=== PATIENT | female | born 1970 | race American Indian/Alaskan Native ===

== ENCOUNTER 2020-12-28 04:52 | Emergency (ER) | payer SELFPAY ==
[2020-12-28 05:02] VITALS: BP 174/112
[2020-12-28] MEDS ORDERED: IPRATROPIUM/ALBUTEROL SULFATE 3 ML AMPUL.NEB IH ONE (05:12)
[2020-12-28] MEDS ORDERED: methylPREDNISolone Sod Succinate 125 MG/2 ML INJ IM ONE (05:12)
--- NOTE | 2020-12-28 06:14 | XRay Report ---
CHEST PA AND LATERAL VIEWS INDICATION: COUGH, DYSPNEA. COMPARISON: None. FINDINGS: Support devices: None. Heart: Within normal limits. Lungs/Pleura: No consolidation or effusion. There are mild increased reticular markings. IMPRESSION: 1. Mild increased reticular markings could be due to peribronchial cuffing in the setting of lower ai rways disease. No consolidation. Signer Name: Eran Crowell MD Signed: 12/28/2020 6:10 AM Workstation Name: [id number]
--- NOTE | 2020-12-28 06:33 | Emergency Department Report ---
- General Chief Complaint: Upper Respiratory Infection Stated Complaint: ASTHMA/EARACHE/HEADACHE Source: patient Mode of arrival: Ambulatory Limitations: No Limitations - History of Present Illness Initial Comments: Patient is a 50-year-old -Japanese female with a history of asthma, tobacco abuse and hypertension who presents to the ED with complaint of acute onset persistent nasal and sinus congestion, persistent dry cough with wheezing and chest tightness as well as shortness of breath for the last 1 week, worse in the last 2 days. Patient states that her nebulizer machine broke down a while ago although she has nebulizer at home but was unable to use it. Patient also states that she does not have any albuterol inhaler at home to use as a rescue inhaler. Patient states that no one else at home is had similar symptoms. Patient denies fever, chills, nausea, vomiting, chest pain, dizziness, syncope, abdominal pain, sore throat or headache MD Complaint: cough, rhinorrhea, nasal congestion, sinus pain, other (Shortness of breath no wheezing) -: Sudden, days(s) (3) Severity: severe Severity scale (0 -10): 7 Quality: dull, aching Consistency: intermittent Improves With: nothing Worsens With: nothing Associated Symptoms: denies other symptoms, rhinorrhea, nasal congestion, cough, shortness of breath. denies: fever, chills, myalgias, diaphoresis, headache, sore throat, stiff neck, chest pain, abdominal pain, nausea, vomiting, dysuria, rash, confusion, weight loss, epistaxis, hoarseness, ear pain, other Treatments Prior to Arrival: none - Related Data Previous Rx's Medication Instructions Recorded Last Taken Type Albuterol Sulfate [Proventil Hfa] 1 - 2 puff IH Q6H PRN #1 hfa.aer.ad 12/28/20 Unknown Rx Azithromycin [Zithromax Z-RAMA] 250 mg PO DAILY #6 tablet 12/28/20 Unknown Rx Benzonatate [Tessalon Perles] 100 mg PO Q8HR #30 capsule 12/28/20 Unknown Rx methylPREDNISolone [Medrol 4MG 4 mg PO DAILY #21 tab.ds.pk 12/28/20 Unknown Rx DOSEPAK (21 tabs)] Allergies Allergy/AdvReac Type Severity Reaction Status Date / Time Penicillins Allergy Mild Rash Verified 12/28/20 05:03 ED Review of Systems ROS: Stated complaint: ASTHMA/EARACHE/HEADACHE Other details as noted in HPI Constitutional: denies: chills, fever Eyes: denies: eye pain, eye discharge, vision change ENT: congestion, other (Nasal and sinus congestion). denies: ear pain, throat pain Respiratory: cough, shortness of breath, wheezing Cardiovascular: denies: chest pain, palpitations Endocrine: no symptoms reported Gastrointestinal: denies: abdominal pain, nausea, diarrhea Genitourinary: denies: urgency, dysuria, discharge Musculoskeletal: denies: back pain, joint swelling, arthralgia Skin: denies: rash, lesions Neurological: denies: headache, weakness, paresthesias Psychiatric: denies: anxiety, depression Hematological/Lymphatic: denies: easy bleeding, easy bruising ED Past Medical Hx - Past Medical History Hx Hypertension: Yes (doesnt take meds properly.) Hx Asthma: Yes - Surgical History Past Surgical History?: No - Medications Home Medications: Home Medications Medication Instructions Recorded Confirmed Last Taken Type Albuterol Sulfate [Proventil Hfa] 1 - 2 puff IH Q6H PRN #1 hfa.aer.ad 12/28/20 Unknown Rx Azithromycin [Zithromax Z-RAMA] 250 mg PO DAILY #6 tablet 12/28/20 Unknown Rx Benzonatate [Tessalon Perles] 100 mg PO Q8HR #30 capsule 12/28/20 Unknown Rx methylPREDNISolone [Medrol 4MG 4 mg PO DAILY #21 tab.ds.pk 12/28/20 Unknown Rx DOSEPAK (21 tabs)] ED Physical Exam - General Limitations: No Limitations General appearance: alert, in no apparent distress - Head Head exam: Present: atraumatic, normocephalic, normal inspection - Eye Eye exam: Present: normal appearance, PERRL, EOMI Pupils: Present: normal accommodation - ENT ENT exam: Present: normal orophraynx, mucous membranes moist, TM's normal bilaterally, normal external ear exam, other (Grossly congested nasal passages; palpable frontal and maxillary sinus tenderness) - Neck Neck exam: Present: normal inspection, full ROM - Respiratory Respiratory exam: Present: wheezes (Mildly diffuse coarse wheezes throughout). Absent: respiratory distress, rales, rhonchi, chest wall tenderness, accessory muscle use, decreased breath sounds, prolonged expiratory - Cardiovascular Cardiovascular Exam: Present: regular rate, normal rhythm, normal heart sounds. Absent: bradycardia, irregular rhythm, systolic murmur, diastolic murmur, rubs, gallop - GI/Abdominal GI/Abdominal exam: Present: soft, normal bowel sounds. Absent: tenderness, guarding, rebound, hyperactive bowel sounds, hypoactive bowel sounds, organomegaly, mass - Extremities Exam Extremities exam: Present: normal inspection, full ROM, normal capillary refill - Back Exam Back exam: Present: normal inspection, full ROM. Absent: tenderness, CVA tenderness (R), CVA tenderness (L), muscle spasm, paraspinal tenderness - Neurological Exam Neurological exam: Present: alert, oriented X3, CN II-XII intact, normal gait, reflexes normal - Psychiatric Psychiatric exam: Present: normal affect, normal mood - Skin Skin exam: Present: warm, dry, intact, normal color. Absent: rash ED Course Vital Signs 12/28/20 04:58 Temperature 98.0 F Pulse Rate 97 H Respiratory 20 Rate Blood Pressure 174/112 [Left] O2 Sat by Pulse 96 Oximetry ED Medical Decision Making - Radiology Data Radiology results: report reviewed, image reviewed [address] [address] XRay Report Signed Patient: LUIS MENDOZA MR#: [id number] : 1970 Acct:[id number] Age/Sex: 50 / F ADM Date: 12/28/20 Loc: ED Attending Dr: Ordering Physician: INGRIS SIMMS Date of Service: 12/28/20 Procedure(s): XR chest routine 2V Accession Number(s): [id number] cc: INGRIS SIMMS Fluoro Time In Minutes: CHEST PA AND LATERAL VIEWS INDICATION: COUGH, DYSPNEA. COMPARISON: None. FINDINGS: Support devices: None. Heart: Within normal limits. Lungs/Pleura: No consolidation or effusion. There are mild increased reticular markings. IMPRESSION: 1. Mild increased reticular markings could be due to peribronchial cuffing in the setting of lower airways disease. No consolidation. Signer Name: Eran Crowell MD Signed: 12/28/2020 6:10 AM Workstation Name: [id number] Transcribed By: Dictated By: Eran Crowell MD Electronically Authenticated By: Eran Crowell MD Signed Date/Time: 12/28/20609 DD/ 8 TD/TT: - Medical Decision Making This is a 50-year-old -Japanese female with a history of asthma, tobacco abuse and hypertension who presents to the ED with complaint of acute onset persistent nasal and sinus congestion, persistent dry cough with wheezing and chest tightness as well as shortness of breath for the last 1 week, worse in the last 2 days. Patient states that her nebulizer machine broke down a while ago although she has nebulizer at home but was unable to use it. Patient also states that she does not have any albuterol inhaler at home to use as a rescue inhaler. Patient states that no one else at home is had similar symptoms. In the ED, patient is alert and oriented x3 and is not in any distress. Patient was treated in the ED with DuoNeb and Solu-Medrol injection. Chest x-ray showed no acute cardiopulmonary abnormalities or pneumonitis but mild increased reticular markings could be due to peribronchial cuffing in the setting of lower airways disease. No consolidation. On reevaluation, patient wheezing improved significantly, patient oxygen saturation was 96% in room air. Patient was discharged home on medications and advised to follow-up with her primary care physician in 7 to 10 days for reevaluation. Patient was advised to consider quitting tobacco abuse to improve on her symptoms. Patient was advised return to the ED immediately if symptoms get worse. - Differential Diagnosis Asthma; URI; bronchitis; sinusitis; pneumonia; COVID-19 Critical care attestation.: If time is entered above; I have spent that time in minutes in the direct care of this critically ill patient, excluding procedure time. ED Disposition Clinical Impression: Acute bronchitis with asthma with acute exacerbation, Acute upper respiratory infection Disposition: HOME / SELF CARE / HOMELESS Is pt being admited?: No Does the pt Need Aspirin: No Condition: Stable Instructions: Upper Respiratory Infection, Adult, [id number], Cough, Adult, [id number], Acute Bronchitis, Adult, [id number], Asthma, Adult, [id number] Additional Instructions: Chest x-ray showed no acute cardiopulmonary abnormalities or pneumonitis. Take medication with food, drink plenty of fluids and follow-up with your primary care physician in 7 to 10 days for reevaluation. Return to the ED immediately if symptoms get worse. Prescriptions: methylPREDNISolone [Medrol 4MG DOSEPAK (21 tabs)] 4 mg PO DAILY #21 tab.ds.pk Albuterol Sulfate [Proventil Hfa] 1 - 2 puff IH Q6H PRN #1 hfa.aer.ad PRN Reason: Shortness Of Breath Benzonatate [Tessalon Perles] 100 mg PO Q8HR #30 capsule Azithromycin [Zithromax Z-RAMA] 250 mg PO DAILY #6 tablet Referrals: [facility] [Provider Group] - 7-10 days Forms: Work/School Release Form(ED) Time of Disposition: 06:35 Print Language: LITHUANIAN
== END 2020-12-28 06:56 | disposition home or self-care (01) ==
LOC: ED 04:52
DX: F20.9 Schizophrenia, unspecified (principal); J45.901 Unspecified asthma with (acute) exacerbation; I10 Essential (primary) hypertension
CPT/HCPCS: 71046; 96372; 99283; J2930

== ENCOUNTER 2021-01-04 16:47 | Emergency (ER) | payer SELFPAY ==
[2021-01-04 18:55] VITALS: BP 176/129
[2021-01-04] MEDS ORDERED: CYCLOBENZAPRINE 10 MG TAB PO ONE (19:14)
[2021-01-04] MEDS ORDERED: KETOROLAC 30 MG/1 ML INJ IM ONE (19:14)
[2021-01-04] MEDS ORDERED: dexAMETHasone 20 MG/5 ML VIAL IM ONE (19:14)
--- NOTE | 2021-01-04 19:19 | Emergency Department Report ---
ED Back Pain/Injury HPI - General Chief Complaint: Back Pain/Injury Stated Complaint: BACK PAIN/LEG Time Seen by Provider: 01/04/21 19:14 Source: patient Limitations: No Limitations - History of Present Illness Initial Comments: Patient 50-year-old -[place] female with history of asthma and kidney stones who presents for low back pain radiating to left lower extremity x2 days.n patient states she woke up with burning stinging pain radiating to the left leg. Pain is rated at 5/10 exacerbated by movement palpation. Pain is relieved by rest and offloading. Patient denies fall injury or trauma. Patient denies dysuria, frequency or urgency. There is no hematuria. No fevers, no chills no nausea or vomiting. MD Complaint: back injury - Related Data Previous Rx's Medication Instructions Recorded Last Taken Type Albuterol Sulfate [Proventil Hfa] 1 - 2 puff IH Q6H PRN #1 hfa.aer.ad 12/28/20 Unknown Rx Azithromycin [Zithromax Z-RAMA] 250 mg PO DAILY #6 tablet 12/28/20 Unknown Rx Benzonatate [Tessalon Perles] 100 mg PO Q8HR #30 capsule 12/28/20 Unknown Rx methylPREDNISolone [Medrol 4MG 4 mg PO DAILY #21 tab.ds.pk 12/28/20 Unknown Rx DOSEPAK (21 tabs)] Cyclobenzaprine [Flexeril] 10 mg PO BID PRN #20 tablet 01/04/21 Unknown Rx Menthol/Camphor [[place] 1 applicatio TP Q6H PRN #1 tube 01/04/21 Unknown Rx Ointment] Naproxen 500 mg PO BID PRN #30 tablet 01/04/21 Unknown Rx Allergies Allergy/AdvReac Type Severity Reaction Status Date / Time Penicillins Allergy Mild Rash Verified 12/28/20 05:03 ED Review of Systems ROS: Stated complaint: BACK PAIN/LEG Other details as noted in HPI Constitutional: denies: chills, fever Eyes: denies: eye pain, eye discharge, vision change ENT: denies: ear pain, throat pain Respiratory: denies: cough, shortness of breath, wheezing Cardiovascular: denies: chest pain, palpitations Endocrine: no symptoms reported Gastrointestinal: as per HPI. denies: nausea, vomiting Genitourinary: denies: urgency, dysuria, frequency, hematuria, discharge Musculoskeletal: back pain, arthralgia, myalgia Skin: as per HPI Neurological: denies: headache, weakness, numbness, paresthesias, confusion, vertigo Psychiatric: denies: anxiety, depression Hematological/Lymphatic: denies: easy bleeding, easy bruising ED Past Medical Hx - Past Medical History Hx Hypertension: Yes (doesnt take meds properly.) Hx Asthma: Yes - Medications Home Medications: Home Medications Medication Instructions Recorded Confirmed Last Taken Type Albuterol Sulfate [Proventil Hfa] 1 - 2 puff IH Q6H PRN #1 hfa.aer.ad 12/28/20 Unknown Rx Azithromycin [Zithromax Z-RAMA] 250 mg PO DAILY #6 tablet 12/28/20 Unknown Rx Benzonatate [Tessalon Perles] 100 mg PO Q8HR #30 capsule 12/28/20 Unknown Rx methylPREDNISolone [Medrol 4MG 4 mg PO DAILY #21 tab.ds.pk 12/28/20 Unknown Rx DOSEPAK (21 tabs)] Cyclobenzaprine [Flexeril] 10 mg PO BID PRN #20 tablet 01/04/21 Unknown Rx Menthol/Camphor [[place] 1 applicatio TP Q6H PRN #1 tube 01/04/21 Unknown Rx Ointment] Naproxen 500 mg PO BID PRN #30 tablet 01/04/21 Unknown Rx ED Physical Exam - General Limitations: No Limitations General appearance: alert, in no apparent distress - Head Head exam: Present: atraumatic, normocephalic - Eye Eye exam: Present: EOMI Pupils: Present: normal accommodation - ENT ENT exam: Present: mucous membranes moist - Neck Neck exam: Present: normal inspection, full ROM. Absent: tenderness - Respiratory Respiratory exam: Present: normal lung sounds bilaterally. Absent: respiratory distress, wheezes, stridor, chest wall tenderness - Cardiovascular Cardiovascular Exam: Present: regular rate, normal rhythm, normal heart sounds. Absent: systolic murmur, diastolic murmur, rubs, gallop - GI/Abdominal GI/Abdominal exam: Present: soft, normal bowel sounds. Absent: distended, tenderness, guarding, rebound, rigid, bruit, hernia - Rectal Rectal exam: Present: deferred - Extremities Exam Extremities exam: Present: full ROM, normal capillary refill. Absent: tenderness - Back Exam Back exam: Present: full ROM, CVA tenderness (L), muscle spasm, paraspinal tenderness. Absent: CVA tenderness (R), vertebral tenderness - Expanded Back Exam Expanded Back exam: Absent: saddle anesthesia Back exam: Negative Straight Leg Raising: Left - Neurological Exam Neurological exam: Present: alert, oriented X3, CN II-XII intact, normal gait, reflexes normal. Absent: motor sensory deficit - Expanded Neurological Exam Expanded Patient oriented to: Present: person, place, time Speech: Present: fluid speech Motor strength exam: RLE: 5, LLE: 5 DTR: ankle (R): 1+, ankle (L): 1+ Best Eye Response ([place]): (4) open spontaneously Best Motor Response ([place]): (6) obeys commands Best Verbal Response ([place]): (5) oriented [place] Total: 15 - Psychiatric Psychiatric exam: Present: normal affect, normal mood - Skin Skin exam: Present: warm, dry, intact, normal color. Absent: rash ED Course Vital Signs 01/04/21 18:49 Temperature 97.6 F Pulse Rate 109 H Respiratory 20 Rate Blood Pressure 176/129 O2 Sat by Pulse 97 Oximetry ED Medical Decision Making - Lab Data Labs 01/04/21 22:14 Urine Color Yellow Urine Turbidity Clear Urine pH 5.0 Ur Specific [place] 1.025 Urine Protein <15 mg/dl Urine Glucose (UA) Neg Urine Ketones Tr Urine Blood Neg Urine Nitrite Neg Urine Bilirubin Neg Urine Urobilinogen 2.0 Ur Leukocyte Esterase Neg Urine WBC (Auto) 1.0 Urine RBC (Auto) 3.0 U Epithel Cells (Auto) 5.0 Urine Mucus Few - Medical Decision Making Pain is improved medications given in ED. UA is normal no nitrates no leukocytes no bacteria. Plan DC to home, with prescriptions. Take medications as prescribed, moist heat therapy, back exercises, follow-up primary care doctor in 2 to 3 days. Return to emergency should symptoms worsen. Critical care attestation.: If time is entered above; I have spent that time in minutes in the direct care of this critically ill patient, excluding procedure time. ED Disposition Clinical Impression: Low back strain Qualifiers: Encounter type: initial encounter Qualified Code(s): S39.012A - Strain of muscle, fascia and tendon of lower back, initial encounter Disposition: 01 HOME / SELF CARE / HOMELESS Is pt being admited?: No Does the pt Need Aspirin: No Condition: Stable Instructions: Low Back Sprain or Strain Rehab-SportsMed Additional Instructions: Take medications as prescribed, moist heat therapy, back exercises. Follow-up with your doctor in 2 to 3 days. Return to emergency should symptoms worsen. Prescriptions: Cyclobenzaprine [Flexeril] 10 mg PO BID PRN #20 tablet PRN Reason: Muscle Spasm Naproxen 500 mg PO BID PRN #30 tablet PRN Reason: pain Menthol/Camphor [[place] Ointment] 1 applicatio TP Q6H PRN #1 tube PRN Reason: Pain Referrals: TONY MONZON MD [Staff Physician] - 3-5 Days Forms: Work/School Release Form(ED) Time of Disposition: 22:48
[2021-01-04 22:29] LABS: Bilirubin,Urine NEG (Negative); Blood,Urine NEG (Negative); Color,Urine Yellow (Yellow); Mucus,Urine FEW /HPF; Protein,Urine <15 mg/dL mg/dL (Negative)
== END 2021-01-04 23:11 | disposition home or self-care (01) ==
LOC: ED 16:47
DX: S39.012A Strain of muscle, fascia and tendon of lower back, initial encounter (principal); X58.XXXA Exposure to other specified factors, initial encounter; Y93.89 Activity, other specified; Y92.89 Other specified places as the place of occurrence of the external cause; Y99.8 Other external cause status
CPT/HCPCS: 81001; 96372; 99283; J1100; J1885

== ENCOUNTER 2021-01-25 04:15 | Inpatient (IN) | payer SELFPAY ==
[2021-01-25] MEDS ORDERED: IPRATROPIUM 0.02% NEBU 2.5 ML IH ONE (04:26)
[2021-01-25] MEDS ORDERED: ALBUTEROL 2.5 MG/3 ML NEBU IH ONE (04:26)
[2021-01-25] MEDS ORDERED: MAGNESIUM SULFATE 2 GM/50 ML BAG IV ONE (04:26)
[2021-01-25] MEDS ORDERED: methylPREDNISolone Sod Succinate 125 MG/2 ML INJ IV ONE (04:26)
--- NOTE | 2021-01-25 05:03 | Emergency Department Report ---
<TRACIE MARTINEZ - Last Filed: 01/25/21 06:14> ED Asthma HPI - General Chief Complaint: Adult Asthma Stated Complaint: asthma attack Time Seen by Provider: 01/25/21 04:27 Source: patient Mode of arrival: Ambulatory Limitations: No Limitations - History of Present Illness Initial Comments: 50-year-old female with a past medical history of asthma hypertension (noncompliant with meds) presents to the hospital complaining of wheezing shortness of breath for the last 2 days. She ran out of her inhaler and her nebulizer is broken. She complains of a cough occasionally productive of sputum. She feels hot and cold without documented fever. She denies calf tenderness or leg edema. She denies previous history of intubations. PMD: None - Related Data Previous Rx's Medication Instructions Recorded Last Taken Type Albuterol Sulfate [Proventil Hfa] 1 - 2 puff IH Q6H PRN #1 hfa.aer.ad 12/28/20 Unknown Rx Azithromycin [Zithromax Z-RAMA] 250 mg PO DAILY #6 tablet 12/28/20 Unknown Rx Benzonatate [Tessalon Perles] 100 mg PO Q8HR #30 capsule 12/28/20 Unknown Rx methylPREDNISolone [Medrol 4MG 4 mg PO DAILY #21 tab.ds.pk 12/28/20 Unknown Rx DOSEPAK (21 tabs)] Cyclobenzaprine [Flexeril] 10 mg PO BID PRN #20 tablet 01/04/21 Unknown Rx Menthol/Camphor [[place] 1 applicatio TP Q6H PRN #1 tube 01/04/21 Unknown Rx Ointment] Naproxen 500 mg PO BID PRN #30 tablet 01/04/21 Unknown Rx Allergies Allergy/AdvReac Type Severity Reaction Status Date / Time Penicillins Allergy Mild Rash Verified 12/28/20 05:03 ED Review of Systems Comment: All other systems reviewed and negative ED Past Medical Hx - Past Medical History Hx Hypertension: Yes (doesnt take meds properly.) Hx Asthma: Yes - Medications Home Medications: Home Medications Medication Instructions Recorded Confirmed Last Taken Type Albuterol Sulfate [Proventil Hfa] 1 - 2 puff IH Q6H PRN #1 hfa.aer.ad 12/28/20 Unknown Rx Azithromycin [Zithromax Z-RAMA] 250 mg PO DAILY #6 tablet 12/28/20 Unknown Rx Benzonatate [Tessalon Perles] 100 mg PO Q8HR #30 capsule 12/28/20 Unknown Rx methylPREDNISolone [Medrol 4MG 4 mg PO DAILY #21 tab.ds.pk 12/28/20 Unknown Rx DOSEPAK (21 tabs)] Cyclobenzaprine [Flexeril] 10 mg PO BID PRN #20 tablet 01/04/21 Unknown Rx Menthol/Camphor [[place] 1 applicatio TP Q6H PRN #1 tube 01/04/21 Unknown Rx Ointment] Naproxen 500 mg PO BID PRN #30 tablet 01/04/21 Unknown Rx ED Physical Exam - General Limitations: No Limitations - Other Other exam information: General: No acute distress Head: Atraumatic Eyes: normal appearance ENT: Moist mucous membranes Neck: Normal appearance, no midline tenderness Chest: Wheezing, tachypnea, difficulty speaking CV: Regular rate and rhythm Abdomen: Soft, normal bowel sounds, nontender, nondistended, no rebound or guarding Back: Normal inspection Extremity: Normal inspection, full range of motion, no calf tenderness or leg edema Neuro: Alert O x 3, no facial asymmetry, speech clear, no gross motor sensory deficit Psych: Appropriate behavior Skin: No rash ED Medical Decision Making - Lab Data Result diagrams: 01/25/21 05:07 01/25/21 05:07 - Radiology Data Radiology results: report reviewed (Chest x-ray: No acute finding) - Medical Decision Making Patient will require 1 hour continuous neb secondary to significant wheezing and shortness of breath. Critical Care Time: Yes Critical care time in (mins) excluding proc time.: 35 ED Disposition Clinical Impression: Chronic hypertension, Acute bronchospasm Acute asthma exacerbation Qualifiers: Asthma severity: unspecified severity Asthma persistence: unspecified Qualified Code(s): J45.901 - Unspecified asthma with (acute) exacerbation Disposition: ADMITTED INPATIENT Condition: Fair Instructions: Hypertension (ED) <ELLIS ALEX - Last Filed: 01/25/21 07:57> ED Review of Systems ROS: Stated complaint: asthma attack Other details as noted in HPI ED Course Vital Signs 01/25/21 01/25/21 01/25/21 04:17 04:32 04:38 Temperature 99.8 F H Pulse Rate 124 H Pulse Rate [ 118 H Anterior Bilateral Throughout] Respiratory 40 H 36 H Rate Respiratory 24 Rate [Anterior Bilateral Throughout] Blood Pressure Blood Pressure 144/100 [Right] O2 Sat by Pulse 94 97 Oximetry 01/25/21 01/25/21 01/25/21 04:45 05:01 05:15 Temperature Pulse Rate 115 H 112 H 125 H Pulse Rate [ Anterior Bilateral Throughout] Respiratory 18 19 18 Rate Respiratory Rate [Anterior Bilateral Throughout] Blood Pressure 145/101 164/119 Blood Pressure [Right] O2 Sat by Pulse 97 99 95 Oximetry 01/25/21 01/25/21 01/25/21 05:31 05:45 06:01 Temperature Pulse Rate 116 H 115 H 116 H Pulse Rate [ Anterior Bilateral Throughout] Respiratory 26 H 23 26 H Rate Respiratory Rate [Anterior Bilateral Throughout] Blood Pressure 168/114 168/114 166/110 Blood Pressure [Right] O2 Sat by Pulse 96 96 94 Oximetry 01/25/21 01/25/21 01/25/21 06:15 06:31 07:01 Temperature Pulse Rate 115 H 116 H 114 H Pulse Rate [ Anterior Bilateral Throughout] Respiratory 22 21 22 Rate Respiratory Rate [Anterior Bilateral Throughout] Blood Pressure 166/110 159/98 157/106 Blood Pressure [Right] O2 Sat by Pulse 94 94 94 Oximetry ED Medical Decision Making - Lab Data Result diagrams: 01/25/21 05:07 01/25/21 05:07 Lab Results 01/25/21 01/25/21 Range/Units 05:07 05:07 WBC 11.3 H (4.5-11.0) K/mm3 RBC 4.87 (3.65-5.03) M/mm3 Hgb 15.6 H (10.1-14.3) gm/dl Hct 47.8 H (30.3-42.9) % MCV 98 H (79-97) fl MCH 32 (28-32) pg MCHC 33 (30-34) % RDW 14.3 (13.2-15.2) % Plt Count 257 (140-440) K/mm3 Lymph % (Auto) 7.8 L (13.4-35.0) % [place] % (Auto) 11.4 H (0.0-7.3) % Eos % (Auto) 0.8 (0.0-4.3) % Baso % (Auto) 0.7 (0.0-1.8) % Lymph # (Auto) 0.9 L (1.2-5.4) K/mm3 [place] # (Auto) 1.3 H (0.0-0.8) K/mm3 Eos # (Auto) 0.1 (0.0-0.4) K/mm3 Baso # (Auto) 0.1 (0.0-0.1) K/mm3 Seg Neutrophils % 79.3 H (40.0-70.0) % Seg Neutrophils # 9.0 H (1.8-7.7) K/mm3 Sodium 136 L (137-145) mmol/L Potassium 4.3 (3.6-5.0) mmol/L Chloride 98.1 (98-107) mmol/L Carbon Dioxide 23 (22-30) mmol/L Anion Gap 19 mmol/L BUN 14 (7-17) mg/dL Creatinine 0.8 (0.6-1.2) mg/dL Estimated GFR > 60 ml/min BUN/Creatinine Ratio 18 % Glucose 104 H (65-100) mg/dL Calcium 8.5 (8.4-10.2) mg/dL - Medical Decision Making This patient was signed out to me to follow-up on labs and reassessment after a continuous breathing treatment. Labs have been mostly unremarkable including CBC and metabolic panel. Chest x-ray does not show any pneumonia, pleural effusions, pneumothorax, widened mediastinum, or any other acute process. The patient was reevaluated multiple times during, and after, her continuous breathing treatment. There is some improvement as the wheezing is mostly expiratory at this time, but she still does sound tight. The patient has some tachypnea. Oxygen saturation is seen at 94% on room air while at rest. I suspect that her work of breathing will increase and oxygen saturation may decrease upon any exertion or ambulatory testing. For these reasons the patient will be admitted to the hospital for further evaluation and treatment and was accepted for admission by the hospitalist service. Critical care attestation.: If time is entered above; I have spent that time in minutes in the direct care of this critically ill patient, excluding procedure time. ED Disposition Is pt being admited?: Yes Time of Disposition: 07:54
--- NOTE | 2021-01-25 05:03 | XRay Report ---
CHEST 1 VIEW 01/25/2021 4:42 AM INDICATION / CLINICAL INFORMATION: Shortness of breath. COMPARISON: 12/28/20. FINDINGS: SUPPORT DEVICES: None. HEART / MEDIASTINUM: The heart size and pulmonary vasculature are normal. LUNGS / PLEURA: No significant pulmonary or pleural abnormality. No pneumothorax. ADDITIONAL FINDINGS: No significant additional findings. IMPRESSION: No acute findings. Signer Name: Gopi Mosquera MD Signed: 01/25/2021 4:58 AM Workstation Name: [id number]
[2021-01-25 05:43] LABS: Basophils # (Auto) 0.1 K/mm3 (0.0-0.1); Basophils % (Auto) 0.7 % (0.0-1.8); Eosinophils # (Auto) 0.1 K/mm3 (0.0-0.4); Eosinophils % (Auto) 0.8 % (0.0-4.3); Hematocrit 47.8 % (30.3-42.9); Hemoglobin 15.6 gm/dl (10.1-14.3); Lymphocytes # (Auto) 0.9 K/mm3 (1.2-5.4); Lymphocytes % (Auto) 7.8 % (13.4-35.0); Mean Corpuscular HGB Conc 33 % (30-34); Mean Corpuscular Volume 98 fl (79-97); Monocytes # (Auto) 1.3 K/mm3 (0.0-0.8); Monocytes % (Auto) 11.4 % (0.0-7.3); Platelet Count 257 K/mm3 (140-440); Red Blood Count 4.87 M/mm3 (3.65-5.03); Red Cell Distribution Width 14.3 % (13.2-15.2)
[2021-01-25 05:52] LABS: BUN/Creatinine Ratio 18; Blood Urea Nitrogen 14 mg/dL (7-17); Calcium 8.5 mg/dL (8.4-10.2); Hemolysis Index 3
[2021-01-25] MEDS ORDERED: MORPHINE 4 MG/1 ML INJ IV PRN (09:04)
[2021-01-25] MEDS ORDERED: oxyCODONE /ACETAMINOPHEN 5-325MG TAB PO PRN (10:00)
[2021-01-25] MEDS ORDERED: ALBUTEROL 2.5 MG/3 ML NEBU IH PRN (10:00)
[2021-01-25] MEDS ORDERED: ONDANSETRON 4 MG/2 ML INJ IV PRN (10:00)
[2021-01-25] MEDS ORDERED: MORPHINE 2 MG/1 ML INJ IV PRN (10:00)
[2021-01-25] MEDS: IPRATROPIUM/ALBUTEROL SULFATE 3 ML AMPUL.NEB IH SCH ×3 (12:03→23:53)
[2021-01-25] MEDS: BENZONATATE 100 MG CAP PO SCH ×2 (14:37→21:59)
--- NOTE | 2021-01-25 15:06 | History and Physical Report ---
History of Present Illness Date of examination: 01/25/21 Date of admission: 01/25/21 09:05 Chief complaint: Shortness of breath History of present illness: Patient is a 50-year-old female past medical history of hypertension, obesity, and asthma who presented with an acute asthma exacerbation. The patient describes productive coughing (with clear to green sputum), subjective fevers and chills, abdominal pain, and chest pressure over the last week. Patient sachin es any sick contacts, recent travel, prior history of DVT/PE, long-term immobilization, recent surgery, or hematological history. The patient endorses being vaccinated for COVID-19 x2. The patient admits to having worsening asthma symptoms with her recent move to [facility] approximately 8 months ago. She describes being seen at [facility] twice in the previous 30 days for asthma exacerbation. Patient admits to not being able to follow-up with a primary care provider or podiatric technician since moving from [facility]. In the ED, the patient was seen to be an acute asthma exacerbation requiring DuoNebs, IV methylprednisone 125 mg x 1, and IV magnesium 2 g. The patient continued to still have wheezing on exam, and it was deemed appropriate to admit the patient for acute asthma exacerbation. Past History Past Medical History: hypertension, other (Asthma) Social history: single, lives with family, smoking, alcohol abuse, full code Family history: hypertension Medications and Allergies Allergies Allergy/AdvReac Type Severity Reaction Status Date / Time Penicillins Allergy Mild Rash Verified 12/28/20 05:03 Home Medications Medication Instructions Recorded Confirmed Last Taken Type Albuterol Sulfate [Proventil Hfa] 1 - 2 puff IH Q6H PRN #1 hfa.aer.ad 12/28/20 01/25/21 01/02/21 Rx Active Meds: Active Medications Acetaminophen (Acetaminophen 325 Mg Tab) 650 mg PO Q4H PRN PRN Reason: Pain MILD(1-3)/Fever >100.5/REINOSO Albuterol (Albuterol 2.5 Mg/3 Ml Nebu) 2.5 mg IH Q4H PRN PRN Reason: Shortness Of Breath Albuterol/Ipratropium (Ipratropium/Albuterol Sulfate 3 Ml Ampul.Neb) 1 ampul IH QIDRT [facility] Last Admin: 01/25/21 12:03 Dose: 1 ampul Documented by: Azithromycin (Azithromycin 250 Mg Tab) 500 mg PO QDAY [facility]; Protocol Stop: 01/27/21 10:01 Benzonatate (Benzonatate 100 Mg Cap) 100 mg PO Q8HR [facility] Last Admin: 01/25/21 14:37 Dose: 100 mg Documented by: Docusate Sodium (Docusate Sodium 100 Mg Cap) 100 mg PO BID [facility] Ceftriaxone Sodium (Rocephin/Ns 1 Gm/50 Ml) 1 gm in 50 mls @ 100 mls/hr IV Q24H [facility]; Protocol Stop: 01/28/21 14:59 Lisinopril (Lisinopril 20 Mg Tab) 20 mg PO QDAY [facility] Morphine Sulfate (Morphine 2 Mg/1 Ml Inj) 2 mg IV Q4H PRN PRN Reason: Pain , Severe (7-10) Nicotine (Nicotine 21 Mg/24 Hr Patch) 21 mg TD QDAY [facility] Nifedipine (Nifedipine Xl 30 Mg Tab) 30 mg PO QDAY [facility] Ondansetron HCl (Ondansetron 4 Mg/2 Ml Inj) 4 mg IV Q8H PRN PRN Reason: Nausea And Vomiting Oxycodone/Acetaminophen (Oxycodone /Acetaminophen 5-325mg Tab) 1 tab PO Q6H PRN PRN Reason: Pain, Moderate (4-6) Prednisone (Prednisone 20 Mg Tab) 60 mg PO DAILY [facility] Senna/Docusate Sodium (Sennosides/Docusate Sodium 8.6/50 Mg Tab) 1 tab PO QHS [facility] Sodium Chloride (Sodium Chloride 0.9% 10 Ml Flush Syringe) 10 ml IV BID [facility] Last Admin: 01/25/21 14:39 Dose: 10 ml Documented by: Sodium Chloride (Sodium Chloride 0.9% 10 Ml Flush Syringe) 10 ml IV PRN PRN PRN Reason: LINE FLUSH Review of Systems All systems: negative Constitutional: fever, chills, sweats, fatigue Cardiovascular: other (Chest pressure) Respiratory: cough with sputum Gastrointestinal: nausea, constipation Rectal: hemorrhoids Exam - Constitutional Vitals: Temp Pulse Resp BP Pulse Ox 98.1 F 100 H 20 145/103 95 01/25/21 11:16 01/25/21 12:03 01/25/21 12:03 01/25/21 11:16 01/25/21 11:16 General appearance: Present: no acute distress, well-nourished, obese - EENT Eyes: Present: PERRL, EOM intact ENT: hearing intact, clear oral mucosa, dentition normal - Neck Neck: Present: supple, normal ROM - Respiratory Respiratory effort: normal (None 2 L nasal cannula) Respiratory: bilateral: CTA - Cardiovascular Rhythm: regular Heart Sounds: Present: S1 & S2 - Extremities Extremities: no ischemia, pulses intact, pulses symmetrical, No edema, normal temperature, normal color, Full ROM Peripheral Pulses: within normal limits - Abdominal General gastrointestinal: Present: soft, non-tender, non-distended, normal bowel sounds Female genitourinary: Present: deferred - Rectal Rectal Exam: deferred - Integumentary Integumentary: Present: clear, warm, dry - Musculoskeletal Musculoskeletal: strength equal bilaterally - Psychiatric Psychiatric: appropriate mood/affect, intact judgment & insight, memory intact, cooperative - Neurologic Neurologic: CNII-XII intact, moves all extremities - Allied Health Allied health notes reviewed: nursing Results - Labs CBC & Chem 7: 01/25/21 05:07 01/25/21 05:07 Labs: Laboratory Last Values WBC 11.3 K/mm3 (4.5-11.0) H 01/25/21 05:07 RBC 4.87 M/mm3 (3.65-5.03) 01/25/21 05:07 Hgb 15.6 gm/dl (10.1-14.3) H 01/25/21 05:07 Hct 47.8 % (30.3-42.9) H 01/25/21 05:07 MCV 98 fl (79-97) H 01/25/21 05:07 MCH 32 pg (28-32) 01/25/21 05:07 MCHC 33 % (30-34) 01/25/21 05:07 RDW 14.3 % (13.2-15.2) 01/25/21 05:07 Plt Count 257 K/mm3 (140-440) 01/25/21 05:07 Lymph % (Auto) 7.8 % (13.4-35.0) L 01/25/21 05:07 [place] % (Auto) 11.4 % (0.0-7.3) H 01/25/21 05:07 Eos % (Auto) 0.8 % (0.0-4.3) 01/25/21 05:07 Baso % (Auto) 0.7 % (0.0-1.8) 01/25/21 05:07 Lymph # (Auto) 0.9 K/mm3 (1.2-5.4) L 01/25/21 05:07 [place] # (Auto) 1.3 K/mm3 (0.0-0.8) H 01/25/21 05:07 Eos # (Auto) 0.1 K/mm3 (0.0-0.4) 01/25/21 05:07 Baso # (Auto) 0.1 K/mm3 (0.0-0.1) 01/25/21 05:07 Seg Neutrophils % 79.3 % (40.0-70.0) H 01/25/21 05:07 Seg Neutrophils # 9.0 K/mm3 (1.8-7.7) H 01/25/21 05:07 Sodium 136 mmol/L (137-145) L 01/25/21 05:07 Potassium 4.3 mmol/L (3.6-5.0) 01/25/21 05:07 Chloride 98.1 mmol/L (98-107) 01/25/21 05:07 Carbon Dioxide 23 mmol/L (22-30) 01/25/21 05:07 Anion Gap 19 mmol/L 01/25/21 05:07 BUN 14 mg/dL (7-17) 01/25/21 05:07 Creatinine 0.8 mg/dL (0.6-1.2) 01/25/21 05:07 Estimated GFR > 60 ml/min 01/25/21 05:07 BUN/Creatinine Ratio 18 % 01/25/21 05:07 Glucose 104 mg/dL (65-100) H 01/25/21 05:07 POC Glucose 168 mg/dL (70-105) H 01/25/21 11:14 Calcium 8.5 mg/dL (8.4-10.2) 01/25/21 05:07 Sheikh/IV: Voiding Method Toilet Assessment and Plan Assessment and plan: Patient is a 50-year-old female past medical history of hypertension, obesity, and asthma who presented with an acute asthma exacerbation. #Acute asthma exacerbation #Acute hypoxic respiratory failure -Worsening symptoms since moving to [place], [place]. Patient does not have podiatric technician or PCP. -Status post DuoNebs, IV methylprednisolone 125 mg x 1, and IV magnesium 2 g in the ED -Currently on 2 L nasal cannula; does not require oxygen at baseline. Continue to wean as tolerated. -Negative for pulmonary embolism. -Transitioning to IV prednisone 60 mg daily to assist with upper airway restriction. -Continue DuoNebs every 6 hours and albuterol nebs as needed. #Possible community-acquired pneumonia #Possible COVID-19 pneumonia -Chest x-ray revealing possible consolidation and left lower lobe (interpreted by hospitalist) compared to imaging from prior asthma exacerbation. -With patient having productive sputum and subjective fevers, antibiotics will be initiated (azithromycin 500 mg every 24 and Rocephin 1 g every 24) -Ordering procalcitonin. Can consider discontinuing antibiotics if procalcitonin is within normal limits. Negative procalcitonin will point towards possible viral pneumonia. -Ordering coronavirus PCR. If positive, will discontinue antibiotics. -Starting contact and airborne precaution. -Continue to monitor. #Hypertension -Patient unable to recall home antihypertensives. -Starting nifedipine 30 mg daily and lisinopril 20 mg daily. -Continue to monitor. #Constipation -Scheduling MiraLAX twice daily and senna daily. Continue to monitor. #Tobacco dependence #Alcohol use disorder #Tobacco cessation counseling #Alcohol use disorder counseling -Patient endorses smoking between 1-2 packs of cigarettes daily. Counseled pat alberto about importance of smoking cessation given uncontrolled asthma. Patient expressed understanding. Time: +15 minutes -Starting nicotine patch 21 daily. -Patient endorses drinking upwards of 1 L of liquor on weekends. Counseled patient about importance of alcohol cessation and discussed available options for resources. Patient expressed understanding. Starting CIWA protocol. Time: +15 minutes #Obesity #Exercise counseling #Weight loss counseling -BMI 39 -Counseled on importance of dietary changes (fresh fruits and vegetables, increased water intake, and lean meats), incorporating exercise, and weight loss. Patient expressed understanding. -Time: +15 minutes #Advanced care planning -Disease education conducted, care plan discussed, diagnoses discussed, prognosis discussed, and patient acknowledges understanding with care plan -Time: +30 minutes Advance Directives: No VTE prophylaxis?: Chemical Plan of care discussed with patient/family: Yes
[2021-01-25] MEDS: LISINOPRIL 20 MG TAB PO SCH (17:22)
[2021-01-25] MEDS: cefTRIAXone/NS 1 GM/50 ML 1 GM/50 ML BAG IV SCH (17:22)
[2021-01-25] MEDS: AZITHROMYCIN 250 MG TAB PO SCH (17:22)
[2021-01-25] MEDS: NICOTINE 21 MG/24 HR PATCH TD SCH (17:22)
[2021-01-25] MEDS: DOCUSATE SODIUM 100 MG CAP PO SCH ×2 (17:22→21:59)
[2021-01-25] MEDS: NIFEdipine XL 30 MG TAB PO SCH (17:26)
[2021-01-25] MEDS: ENOXAPARIN 40 MG/0.4 ML INJ SUB-Q SCH (21:59)
[2021-01-25] MEDS: SENNOSIDES/DOCUSATE SODIUM 8.6/50 MG TAB PO SCH (21:59)
[2021-01-26] MEDS: BENZONATATE 100 MG CAP PO SCH ×3 (05:43→21:57)
[2021-01-26] MEDS: ACETAMINOPHEN 325 MG TAB PO PRN ×2 (08:05→15:00)
[2021-01-26 08:17] LABS: Basophils % (Auto) 0.2 % (0.0-1.8); Eosinophils % (Auto) 0.1 % (0.0-4.3); Hemoglobin 15.1 gm/dl (10.1-14.3); Lymphocytes # (Auto) 0.8 K/mm3 (1.2-5.4); Lymphocytes % (Auto) 5.9 % (13.4-35.0); Mean Corpuscular HGB Conc 32 % (30-34); Mean Corpuscular Volume 98 fl (79-97); Monocytes # (Auto) 1.3 K/mm3 (0.0-0.8); Monocytes % (Auto) 9.3 % (0.0-7.3); Platelet Count 228 K/mm3 (140-440); Red Blood Count 4.82 M/mm3 (3.65-5.03); Red Cell Distribution Width 14.7 % (13.2-15.2)
[2021-01-26] MEDS ORDERED: guaiFENesin 100 MG/5 ML ORAL LIQD PO PRN (08:21)
[2021-01-26 08:22] LABS: BUN/Creatinine Ratio 16; Blood Urea Nitrogen 14 mg/dL (7-17); Calcium 8.7 mg/dL (8.4-10.2); Hemolysis Index 5
[2021-01-26] MEDS: IPRATROPIUM/ALBUTEROL SULFATE 3 ML AMPUL.NEB IH SCH ×3 (08:56→20:23)
[2021-01-26] MEDS ORDERED: ALBUTEROL 2.5 MG/3 ML NEBU IH PRN (09:03)
[2021-01-26] MEDS: guaiFENesin 100 MG/5 ML ORAL LIQD PO PRN ×3 (09:18→21:58)
[2021-01-26] MEDS: NICOTINE 21 MG/24 HR PATCH TD SCH (09:18)
[2021-01-26] MEDS: predniSONE 20 MG TAB PO SCH (09:19)
[2021-01-26] MEDS: AZITHROMYCIN 250 MG TAB PO SCH (09:19)
[2021-01-26] MEDS: NIFEdipine XL 30 MG TAB PO SCH (09:19)
[2021-01-26] MEDS: LISINOPRIL 20 MG TAB PO SCH (09:19)
[2021-01-26] MEDS: DOCUSATE SODIUM 100 MG CAP PO SCH ×2 (09:19→21:57)
[2021-01-26] MEDS ORDERED: chlordiazePOXIDE 25 MG CAP PO PRN (10:42)
[2021-01-26] MEDS ORDERED: LORazepam 2 MG/ML VIAL IV PRN ×2 (10:42)
--- NOTE | 2021-01-26 10:44 | Progress Note ---
Assessment and Plan Assessment and plan: Patient is a 50-year-old female past medical history of hypertension, obesity, and asthma who presented with an acute asthma exacerbation. #Acute asthma exacerbation #Acute hypoxic respiratory failure -Worsening symptoms since moving to [place], [place]. Patient does not have project engineer or PCP. -Status post DuoNebs, IV methylprednisolone 125 mg x 1, and IV magnesium 2 g in the ED -Currently on 2 L nasal cannula; does not require oxygen at baseline. Continue to wean as tolerated. -Negative for pulmonary embolism. -Continue IV prednisone 60 mg daily to assist with upper airway restriction. -Continue DuoNebs every 6 hours and albuterol nebs as needed. #Possible community-acquired pneumonia #Possible COVID-19 pneumonia -Chest x-ray revealing possible consolidation and left lower lobe (interpreted by hospitalist) compared to imaging from prior asthma exacerbation. -With patient having productive sputum and subjective fevers. Continue azithromycin 500 mg every 24 and Rocephin 1 g every 24 -Ordering procalcitonin. Can consider discontinuing antibiotics if procalcitonin is within normal limits. Negative procalcitonin will point to wards possible viral pneumonia. -Ordering coronavirus PCR. If positive, will discontinue antibiotics. -Starting contact and airborne precaution. -Continue to monitor. #Hypertension -Patient unable to recall home antihypertensives. -Continue nifedipine 30 mg daily and lisinopril 20 mg daily. -Continue to monitor. #Constipation -Continue MiraLAX twice daily and senna daily. Continue to monitor. #Tobacco dependence #Alcohol use disorder #Tobacco cessation counseling #Alcohol use disorder counseling -Patient endorses smoking between 1-2 packs of cigarettes daily. Counseled patient about importance of smoking cessation given uncontrolled asthma. Patient expressed understanding. Time: +10 minutes -Continue nicotine patch 21 daily. -Patient endorses drinking upwards of 1 L of liquor on weekends. Counseled yariel ent about importance of alcohol cessation and discussed available options for resources. Patient expressed understanding. Starting CIWA protocol. Time: +10 minutes #Obesity #Exercise counseling #Weight loss counseling -BMI 39 -Counseled on importance of dietary changes (fresh fruits and vegetables, increased water intake, and lean meats), incorporating exercise, and weight loss. Patient expressed understanding. -Time: +5 minutes #Advanced care planning -Disease education conducted, care plan discussed, diagnoses discussed, prognosis discussed, and patient acknowledges understanding with care plan -Time: +30 minutes Disposition Plan: Continue medical management Total Time Spent with Patient (Minutes): 45 minutes History Interval history: No acute events overnight Hospitalist Physical - Constitutional Vitals: Temp Pulse Resp BP Pulse Ox 99.7 F H 122 H 20 129/82 93 01/26/21 08:00 01/26/21 09:19 01/26/21 08:56 01/26/21 09:19 01/26/21 09:00 General appearance: Present: no acute distress, well-nourished, obese, other (Diaphoretic) - EENT Eyes: Present: PERRL, EOM intact ENT: hearing intact, clear oral mucosa, dentition normal - Neck Neck: Present: supple, normal ROM - Respiratory Respiratory effort: normal (On 3-4 L nasal cannula) Respiratory: bilateral: diminished - Cardiovascular Heart rate: 120 Rhythm: regular Heart Sounds: Present: S1 & S2 - Extremities Extremities: no ischemia, pulses intact, pulses symmetrical, No edema, normal temperature, normal color, Full ROM Peripheral Pulses: within normal limits - Abdominal General gastrointestinal: soft, non-tender, non-distended, normal bowel sounds - Integumentary Integumentary: Present: clear, warm - Psychiatric Psychiatric: appropriate mood/affect, intact judgment & insight, memory intact, cooperative - Neurologic Neurologic: CNII-XII intact, moves all extremities - Allied Health Allied health notes reviewed: nursing Results - Labs CBC & Chem 7: 01/26/21 07:35 01/26/21 07:35 Labs: Laboratory Last Values WBC 14.0 K/mm3 (4.5-11.0) H 01/26/21 07:35 RBC 4.82 M/mm3 (3.65-5.03) 01/26/21 07:35 Hgb 15.1 gm/dl (10.1-14.3) H 01/26/21 07:35 Hct 47.0 % (30.3-42.9) H 01/26/21 07:35 MCV 98 fl (79-97) H 01/26/21 07:35 MCH 31 pg (28-32) 01/26/21 07:35 MCHC 32 % (30-34) 01/26/21 07:35 RDW 14.7 % (13.2-15.2) 01/26/21 07:35 Plt Count 228 K/mm3 (140-440) 01/26/21 07:35 Lymph % (Auto) 5.9 % (13.4-35.0) L 01/26/21 07:35 [place] % (Auto) 9.3 % (0.0-7.3) H 01/26/21 07:35 Eos % (Auto) 0.1 % (0.0-4.3) 01/26/21 07:35 Baso % (Auto) 0.2 % (0.0-1.8) 01/26/21 07:35 Lymph # (Auto) 0.8 K/mm3 (1.2-5.4) L 01/26/21 07:35 [place] # (Auto) 1.3 K/mm3 (0.0-0.8) H 01/26/21 07:35 Eos # (Auto) 0.0 K/mm3 (0.0-0.4) 01/26/21 07:35 Baso # (Auto) 0.0 K/mm3 (0.0-0.1) 01/26/21 07:35 Seg Neutrophils % 84.5 % (40.0-70.0) H 01/26/21 07:35 Seg Neutrophils # 11.8 K/mm3 (1.8-7.7) H 01/26/21 07:35 Sodium 137 mmol/L (137-145) 01/26/21 07:35 Potassium 4.1 mmol/L (3.6-5.0) 01/26/21 07:35 Chloride 98.5 mmol/L (98-107) 01/26/21 07:35 Carbon Dioxide 27 mmol/L (22-30) 01/26/21 07:35 Anion Gap 16 mmol/L 01/26/21 07:35 BUN 14 mg/dL (7-17) 01/26/21 07:35 Creatinine 0.9 mg/dL (0.6-1.2) 01/26/21 07:35 Estimated GFR > 60 ml/min 01/26/21 07:35 BUN/Creatinine Ratio 16 % 01/26/21 07:35 Glucose 97 mg/dL (65-100) 01/26/21 07:35 POC Glucose 94 mg/dL (70-105) 01/26/21 07:44 Calcium 8.7 mg/dL (8.4-10.2) 01/26/21 07:35 Phosphorus 2.70 mg/dL (2.5-4.5) 01/26/21 07:35 Magnesium 2.10 mg/dL (1.7-2.3) 01/26/21 07:35 Sheikh/IV: Voiding Method Toilet Active Medications - Current Medications Current Medications: Generic Name Dose Route Start Last Admin Trade Name Freq PRN Reason Stop Dose Admin Acetaminophen 650 mg 01/25/21 10:00 01/26/21 08:05 Acetaminophen 325 Mg Tab PO 650 mg Q4H PRN Administration Pain MILD(1-3)/Fever >100.5/REINOSO Albuterol 2.5 mg 01/26/21 09:03 Albuterol 2.5 Mg/3 Ml Nebu IH Q4H PRN Shortness Of Breath Albuterol/Ipratropium 1 ampul 01/26/21 14:00 Ipratropium/Albuterol Sulfate 3 Ml Ampul.Neb IH Q6HRT [facility] Arformoterol Tartrate 15 mcg 01/26/21 20:00 Arformoterol 15 Mcg/2 Ml Nebu IH Q12HRT [facility] Azithromycin 500 mg 01/25/21 15:00 01/26/21 09:19 Azithromycin 250 Mg Tab PO 01/27/21 10:01 500 mg QDAY [facility] Administration Protocol Benzonatate 100 mg 01/25/21 14:00 01/26/21 05:43 Benzonatate 100 Mg Cap PO 100 mg Q8HR [facility] Administration Budesonide 0.5 mg 01/26/21 20:00 Budesonide 0.5 Mg/2 Ml Nebu IH Q12HRT [facility] Docusate Sodium 100 mg 01/25/21 15:00 01/26/21 09:19 Docusate Sodium 100 Mg Cap PO 100 mg BID [facility] Administration Enoxaparin Sodium 40 mg 01/25/21 22:00 01/25/21 21:59 Enoxaparin 40 Mg/0.4 Ml Inj SUB-Q 40 mg QDAY@2200 [facility] Administration Protocol Guaifenesin 200 mg 01/26/21 08:34 01/26/21 09:18 Guaifenesin 100 Mg/5 Ml Oral Liqd PO 200 mg Q6H PRN Administration Cough Ceftriaxone Sodium 1 gm in 50 mls @ 100 mls/hr 01/25/21 15:00 01/25/21 17:22 Rocephin/Ns 1 Gm/50 Ml IV 01/28/21 14:59 100 mls/hr Q24H [facility] Administration Protocol Lisinopril 20 mg 01/25/21 15:00 01/26/21 09:19 Lisinopril 20 Mg Tab PO 20 mg QDAY [facility] Administration Morphine Sulfate 2 mg 01/25/21 10:00 Morphine 2 Mg/1 Ml Inj IV Q4H PRN Pain , Severe (7-10) Nicotine 21 mg 01/25/21 15:00 01/26/21 09:18 Nicotine 21 Mg/24 Hr Patch TD 21 mg QDAY [facility] Administration Nifedipine 30 mg 01/25/21 15:00 01/26/21 09:19 Nifedipine Xl 30 Mg Tab PO 30 mg QDAY [facility] Administration Ondansetron HCl 4 mg 01/25/21 10:00 Ondansetron 4 Mg/2 Ml Inj IV Q8H PRN Nausea And Vomiting Oxycodone/Acetaminophen 1 tab 01/25/21 10:00 Oxycodone /Acetaminophen 5-325mg Tab PO Q6H PRN Pain, Moderate (4-6) Prednisone 60 mg 01/26/21 10:00 01/26/21 09:19 Prednisone 20 Mg Tab PO 60 mg DAILY [facility] Administration Senna/Docusate Sodium 1 tab 01/25/21 22:00 01/25/21 21:59 Sennosides/Docusate Sodium 8.6/50 Mg Tab PO 1 tab QHS [facility] Administration Sodium Chloride 10 ml 01/25/21 10:00 01/26/21 09:19 Sodium Chloride 0.9% 10 Ml Flush Syringe IV 10 ml BID [facility] Administration Sodium Chloride 10 ml 01/25/21 10:00 Sodium Chloride 0.9% 10 Ml Flush Syringe IV PRN PRN LINE FLUSH
[2021-01-26] MEDS: BUDESONIDE 0.5 MG/2 ML NEBU IH SCH ×2 (13:03→20:23)
[2021-01-26] MEDS ORDERED: SODIUM CHLORIDE 0.9% 250ML 250 ML ONE (14:59)
[2021-01-26] MEDS: cefTRIAXone/NS 1 GM/50 ML 1 GM/50 ML BAG IV SCH (15:00)
[2021-01-26] MEDS: ARFORMOTEROL 15 MCG/2 ML NEBU IH SCH (20:23)
[2021-01-26] MEDS: SENNOSIDES/DOCUSATE SODIUM 8.6/50 MG TAB PO SCH (21:57)
[2021-01-26] MEDS: ENOXAPARIN 40 MG/0.4 ML INJ SUB-Q SCH (21:58)
[2021-01-27] MEDS: IPRATROPIUM/ALBUTEROL SULFATE 3 ML AMPUL.NEB IH SCH ×4 (02:19→21:10)
[2021-01-27] MEDS: BENZONATATE 100 MG CAP PO SCH ×2 (05:25→14:26)
[2021-01-27] MEDS: guaiFENesin 100 MG/5 ML ORAL LIQD PO PRN ×2 (05:25→12:31)
[2021-01-27 08:01] LABS: Basophils # (Auto) 0.1 K/mm3 (0.0-0.1); Basophils % (Auto) 0.5 % (0.0-1.8); Eosinophils % (Auto) 0.2 % (0.0-4.3); Hematocrit 44.9 % (30.3-42.9); Hemoglobin 14.6 gm/dl (10.1-14.3); Lymphocytes # (Auto) 1.5 K/mm3 (1.2-5.4); Lymphocytes % (Auto) 15.1 % (13.4-35.0); Mean Corpuscular HGB Conc 32 % (30-34); Mean Corpuscular Volume 98 fl (79-97); Monocytes # (Auto) 1.5 K/mm3 (0.0-0.8); Monocytes % (Auto) 15.2 % (0.0-7.3); Platelet Count 232 K/mm3 (140-440); Red Blood Count 4.58 M/mm3 (3.65-5.03); Red Cell Distribution Width 14.6 % (13.2-15.2)
[2021-01-27 08:19] LABS: Blood Urea Nitrogen 11 mg/dL (7-17); Calcium 8.4 mg/dL (8.4-10.2); Hemolysis Index 4
[2021-01-27 08:40] LABS: BUN/Creatinine Ratio 18
[2021-01-27] MEDS: ARFORMOTEROL 15 MCG/2 ML NEBU IH SCH ×2 (09:21→21:10)
[2021-01-27] MEDS: BUDESONIDE 0.5 MG/2 ML NEBU IH SCH ×2 (09:21→21:10)
--- NOTE | 2021-01-27 09:21 | XRay Report ---
CHEST 1 VIEW INDICATION: Assess for possible pneumonia. COMPARISON: 01/25/2021 FINDINGS: Support devices: None. Heart: Stable. Lungs/Pleura: There is a focal density projecting over the inferior right upper lobe. Lungs otherwise clear. No pleural abnormality. IMPRESSION: 1. New since the prior there is a focal somewhat ill-defined density projecting over the inferior rig ht upper lobe. This could be summation artifact. Lungs otherwise clear. Signer Name: Eran Crowell MD Signed: 01/27/2021 9:17 AM Workstation Name: [id number]
[2021-01-27] MEDS: NICOTINE 21 MG/24 HR PATCH TD SCH (12:31)
[2021-01-27] MEDS: DOCUSATE SODIUM 100 MG CAP PO SCH (12:31)
[2021-01-27] MEDS: NIFEdipine XL 30 MG TAB PO SCH (12:31)
[2021-01-27] MEDS: predniSONE 20 MG TAB PO SCH (12:32)
[2021-01-27] MEDS: LISINOPRIL 20 MG TAB PO SCH (12:35)
[2021-01-27] MEDS: AZITHROMYCIN 250 MG TAB PO SCH (12:35)
--- NOTE | 2021-01-27 12:36 | Progress Note ---
Assessment and Plan Assessment and plan: Patient is a 50-year-old female past medical history of hypertension, obesity, and asthma who presented with an acute asthma exacerbation. #Acute asthma exacerbation-resolved #Acute hypoxic respiratory failure-improving -Worsening symptoms since moving to [place], [place]. Patient does not have resident care assistant or PCP. -Status post DuoNebs, IV methylprednisolone 125 mg x 1, and IV magnesium 2 g in the ED -Currently on 2 L nasal cannula; does not require oxygen at baseline. Continue to wean as tolerated. -Negative for pulmonary embolism. -Continue IV prednisone 60 mg daily to assist with upper airway restriction. -Continue DuoNebs every 6 hours and albuterol nebs as needed. #Immunity acquired pneumonia #Possible COVID-19 pneumonia -Chest x-ray revealing possible consolidation and left lower lobe (interpreted by hospitalist) compared to imaging from prior asthma exacerbation. -With patient having productive sputum and subjective fevers. Continue azithromycin 500 mg every 24 and Rocephin 1 g every 24 (currently on day 3) -Procalcitonin within normal limits. -Pending coronavirus PCR. If positive, will discontinue antibiotics. -Continue contact and airborne precaution. -Continue to monitor. #Hypertension -Patient unable to recall home antihypertensives. -Continue nifedipine 30 mg daily and lisinopril 20 mg daily. -Continue to monitor. #Constipation -Continue MiraLAX twice daily and senna daily. Continue to monitor. #Tobacco dependence #Alcohol use disorder #Tobacco cessation counseling #Alcohol use disorder counseling -Patient endorses smoking between 1-2 packs of cigarettes daily. Counseled patient about importance of smoking cessation given uncontrolled asthma. Patient expressed understanding. Time: +10 minutes -Continue nicotine patch 21 daily. -Patient endorses drinking upwards of 1 L of liquor on weekends. Counseled patient about importance of alcohol cessation and discussed available options for resources. Patient expressed understanding. Continue CIWA protocol. Time: +10 minutes #Obesity #Exercise counseling #Weight loss counseling -BMI 39 -Counseled on importance of dietary changes (fresh fruits and vegetables, increased water intake, and lean meats), incorporating exercise, and weight loss. Patient expressed understanding. -Time: +5 minutes #Advanced care planning -Disease education conducted, care plan discussed, diagnoses discussed, prognosis discussed, and patient acknowledges understanding with care plan -Time: +30 minutes Disposition Plan: Continue medical management Total Time Spent with Patient (Minutes): 45 minutes History Interval history: None patient became febrile yesterday but remained hemodynamically stable. Hospitalist Physical - Constitutional Vitals: Temp Pulse Resp BP Pulse Ox 98.1 F 90 22 141/95 97 01/27/21 11:28 01/27/21 11:28 01/27/21 11:28 01/27/21 11:28 01/27/21 11:28 General appearance: Present: no acute distress, well-nourished, obese - EENT Eyes: Present: PERRL, EOM intact ENT: hearing intact, clear oral mucosa, dentition normal - Neck Neck: Present: supple, normal ROM - Respiratory Respiratory effort: normal (On 1 L nasal cannula) Respiratory: bilateral: diminished - Cardiovascular Rhythm: regular Heart Sounds: Present: S1 & S2 - Extremities Extremities: no ischemia, pulses intact, pulses symmetrical, No edema, normal temperature, normal color, Full ROM Peripheral Pulses: within normal limits - Abdominal General gastrointestinal: soft, non-tender, non-distended, normal bowel sounds - Integumentary Integumentary: Present: clear, warm, dry - Psychiatric Psychiatric: appropriate mood/affect, intact judgment & insight, memory intact, cooperative - Neurologic Neurologic: CNII-XII intact, moves all extremities - Allied Health Allied health notes reviewed: nursing Results - Labs CBC & Chem 7: 01/27/21 07:22 01/27/21 07:22 Labs: Laboratory Last Values WBC 10.2 K/mm3 (4.5-11.0) 01/27/21 07:22 RBC 4.58 M/mm3 (3.65-5.03) 01/27/21 07:22 Hgb 14.6 gm/dl (10.1-14.3) H 01/27/21 07:22 Hct 44.9 % (30.3-42.9) H 01/27/21 07:22 MCV 98 fl (79-97) H 01/27/21 07:22 MCH 32 pg (28-32) 01/27/21 07:22 MCHC 32 % (30-34) 01/27/21 07:22 RDW 14.6 % (13.2-15.2) 01/27/21 07:22 Plt Count 232 K/mm3 (140-440) 01/27/21 07:22 Lymph % (Auto) 15.1 % (13.4-35.0) 01/27/21 07:22 [place] % (Auto) 15.2 % (0.0-7.3) H 01/27/21 07:22 Eos % (Auto) 0.2 % (0.0-4.3) 01/27/21 07:22 Baso % (Auto) 0.5 % (0.0-1.8) 01/27/21 07:22 Lymph # (Auto) 1.5 K/mm3 (1.2-5.4) 01/27/21 07:22 [place] # (Auto) 1.5 K/mm3 (0.0-0.8) H 01/27/21 07:22 Eos # (Auto) 0.0 K/mm3 (0.0-0.4) 01/27/21 07:22 Baso # (Auto) 0.1 K/mm3 (0.0-0.1) 01/27/21 07:22 Seg Neutrophils % 69.0 % (40.0-70.0) 01/27/21 07:22 Seg Neutrophils # 7.0 K/mm3 (1.8-7.7) 01/27/21 07:22 D-Dimer 156.94 ng/mlDDU (0-234) 01/27/21 07:22 Sodium 139 mmol/L (137-145) 01/27/21 07:22 Potassium 4.0 mmol/L (3.6-5.0) 01/27/21 07:22 Chloride 101.4 mmol/L (98-107) 01/27/21 07:22 Carbon Dioxide 27 mmol/L (22-30) 01/27/21 07:22 Anion Gap 15 mmol/L 01/27/21 07:22 BUN 11 mg/dL (7-17) 01/27/21 07:22 Creatinine 0.6 mg/dL (0.6-1.2) 01/27/21 07:22 Estimated GFR > 60 ml/min 01/27/21 07:22 BUN/Creatinine Ratio 18 % 01/27/21 07:22 Glucose 90 mg/dL (65-100) 01/27/21 07:22 POC Glucose 94 mg/dL (70-105) 01/26/21 07:44 Calcium 8.4 mg/dL (8.4-10.2) 01/27/21 07:22 Phosphorus 2.70 mg/dL (2.5-4.5) 01/26/21 07:35 Magnesium 2.10 mg/dL (1.7-2.3) 01/26/21 07:35 Ferritin 177.4 ng/mL (10.0-200.0) 01/27/21 07:22 C-Reactive Protein 7.80 mg/dL (0.00-1.30) H 01/27/21 07:22 Procalcitonin < 0.05 ng/mL (<0.15) 01/26/21 13:15 Sheikh/IV: Voiding Method Toilet Active Medications - Current Medications Current Medications: Generic Name Dose Route Start Last Admin Trade Name Freq PRN Reason Stop Dose Admin Acetaminophen 650 mg 01/25/21 10:00 01/26/21 15:00 Acetaminophen 325 Mg Tab PO 650 mg Q4H PRN Administration Pain MILD(1-3)/Fever >100.5/REINOSO Albuterol 2.5 mg 01/26/21 09:03 Albuterol 2.5 Mg/3 Ml Nebu IH Q4H PRN Shortness Of Breath Albuterol/Ipratropium 1 ampul 01/26/21 14:00 01/27/21 09:21 Ipratropium/Albuterol Sulfate 3 Ml Ampul.Neb IH Not Given Q6HRT HOLDEN Arformoterol Tartrate 15 mcg 01/26/21 20:00 01/27/21 09:21 Arformoterol 15 Mcg/2 Ml Nebu IH 15 mcg Q12HRT HOLDEN Administration Azithromycin 500 mg 01/27/21 13:00 Azithromycin 250 Mg Tab PO 01/27/21 13:01 ONCE ONE Protocol Benzonatate 100 mg 01/25/21 14:00 01/27/21 05:25 Benzonatate 100 Mg Cap PO 100 mg Q8HR HOLDEN Administration Budesonide 0.5 mg 01/26/21 20:00 01/27/21 09:21 Budesonide 0.5 Mg/2 Ml Nebu IH 0.5 mg Q12HRT HOLDEN Administration Chlordiazepoxide HCl 50 mg 01/26/21 10:42 Chlordiazepoxide 25 Mg Cap PO Q1H PRN CIWA-Ar 8-15 Docusate Sodium 100 mg 01/25/21 15:00 01/26/21 21:57 Docusate Sodium 100 Mg Cap PO 100 mg BID HOLDEN Administration Enoxaparin Sodium 40 mg 01/25/21 22:00 01/26/21 21:58 Enoxaparin 40 Mg/0.4 Ml Inj SUB-Q 40 mg QDAY@2200 HOLDEN Administration Protocol Guaifenesin 200 mg 01/26/21 08:34 01/27/21 05:25 Guaifenesin 100 Mg/5 Ml Oral Liqd PO 200 mg Q6H PRN Administration Cough Ceftriaxone Sodium 1 gm in 50 mls @ 100 mls/hr 01/25/21 15:00 01/26/21 15:00 Rocephin/Ns 1 Gm/50 Ml IV 01/28/21 14:59 100 mls/hr Q24H HOLDEN Administration Protocol Lisinopril 20 mg 01/25/21 15:00 01/26/21 09:19 Lisinopril 20 Mg Tab PO 20 mg QDAY HOLDEN Administration Lorazepam 4 mg 01/26/21 10:42 Lorazepam 2 Mg/Ml Vial IV Q15MIN PRN CIWA-Ar >25 Lorazepam 4 mg 01/26/21 10:42 Lorazepam 2 Mg/Ml Vial IV Q1H PRN CIWA-Ar 16-25 Morphine Sulfate 2 mg 01/25/21 10:00 Morphine 2 Mg/1 Ml Inj IV Q4H PRN Pain , Severe (7-10) Nicotine 21 mg 01/25/21 15:00 01/26/21 09:18 Nicotine 21 Mg/24 Hr Patch TD 21 mg QDAY HOLDEN Administration Nifedipine 30 mg 01/25/21 15:00 01/26/21 09:19 Nifedipine Xl 30 Mg Tab PO 30 mg QDAY HOLDEN Administration Ondansetron HCl 4 mg 01/25/21 10:00 Ondansetron 4 Mg/2 Ml Inj IV Q8H PRN Nausea And Vomiting Oxycodone/Acetaminophen 1 tab 01/25/21 10:00 Oxycodone /Acetaminophen 5-325mg Tab PO Q6H PRN Pain, Moderate (4-6) Prednisone 60 mg 01/26/21 10:00 01/26/21 09:19 Prednisone 20 Mg Tab PO 60 mg DAILY HOLDEN Administration Senna/Docusate Sodium 1 tab 01/25/21 22:00 01/26/21 21:57 Sennosides/Docusate Sodium 8.6/50 Mg Tab PO 1 tab QHS HOLDEN Administration Sodium Chloride 10 ml 01/25/21 10:00 01/26/21 21:58 Sodium Chloride 0.9% 10 Ml Flush Syringe IV 10 ml BID HOLDEN Administration Sodium Chloride 10 ml 01/25/21 10:00 Sodium Chloride 0.9% 10 Ml Flush Syringe IV PRN PRN LINE FLUSH
[2021-01-27] MEDS ORDERED: AZITHROMYCIN 250 MG TAB PO ONE (13:00)
[2021-01-27] MEDS: cefTRIAXone/NS 1 GM/50 ML 1 GM/50 ML BAG IV SCH (14:26)
[2021-01-28] MEDS: ENOXAPARIN 40 MG/0.4 ML INJ SUB-Q SCH ×2 (00:25→22:24)
[2021-01-28] MEDS: DOCUSATE SODIUM 100 MG CAP PO SCH ×3 (00:25→22:25)
[2021-01-28] MEDS: SENNOSIDES/DOCUSATE SODIUM 8.6/50 MG TAB PO SCH ×2 (00:25→22:25)
[2021-01-28] MEDS: BENZONATATE 100 MG CAP PO SCH ×4 (00:25→22:26)
[2021-01-28] MEDS: guaiFENesin 100 MG/5 ML ORAL LIQD PO PRN ×4 (00:27→17:09)
[2021-01-28] MEDS: IPRATROPIUM/ALBUTEROL SULFATE 3 ML AMPUL.NEB IH SCH ×4 (04:26→19:52)
[2021-01-28 07:22] LABS: Basophils # (Auto) 0.1 K/mm3 (0.0-0.1); Basophils % (Auto) 0.9 % (0.0-1.8); Eosinophils % (Auto) 0.1 % (0.0-4.3); Hematocrit 44.2 % (30.3-42.9); Hemoglobin 14.1 gm/dl (10.1-14.3); Lymphocytes # (Auto) 2.2 K/mm3 (1.2-5.4); Lymphocytes % (Auto) 18.2 % (13.4-35.0); Mean Corpuscular HGB Conc 32 % (30-34); Mean Corpuscular Volume 98 fl (79-97); Monocytes # (Auto) 1.7 K/mm3 (0.0-0.8); Monocytes % (Auto) 14.1 % (0.0-7.3); Platelet Count 241 K/mm3 (140-440); Red Blood Count 4.51 M/mm3 (3.65-5.03); Red Cell Distribution Width 14.8 % (13.2-15.2)
[2021-01-28 07:42] LABS: Blood Urea Nitrogen 10 mg/dL (7-17); Calcium 8.6 mg/dL (8.4-10.2); Hemolysis Index 9
[2021-01-28 08:08] LABS: BUN/Creatinine Ratio 14
[2021-01-28] MEDS: BUDESONIDE 0.5 MG/2 ML NEBU IH SCH ×2 (08:50→19:52)
[2021-01-28] MEDS: ARFORMOTEROL 15 MCG/2 ML NEBU IH SCH ×2 (08:50→19:52)
[2021-01-28] MEDS: NICOTINE 21 MG/24 HR PATCH TD SCH (10:29)
[2021-01-28] MEDS: LISINOPRIL 20 MG TAB PO SCH (10:30)
[2021-01-28] MEDS: NIFEdipine XL 30 MG TAB PO SCH (10:30)
--- NOTE | 2021-01-28 15:04 | Progress Note ---
Assessment and Plan Assessment and plan: Patient is a 50-year-old female past medical history of hypertension, obesity, and asthma who presented with an acute asthma exacerbation. #Acute asthma exacerbation-resolved #Acute hypoxic respiratory failure-resolved -Worsening symptoms since moving to [place], [place]. 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 -Status post DuoNebs, IV methylprednisolone 125 mg x 1, and IV magnesium 2 g in the ED -Patient desaturated to 90 with ambulation. Will watch for improvement and possible discharge tomorrow. -Negative for pulmonary embolism. -Discontinue IV prednisone 60 mg daily to assist with upper airway restriction. -Continue DuoNebs every 6 hours and albuterol nebs as needed. #Immunity acquired pneumonia-resolved #Possible COVID-19 pneumonia-resolved -Chest x-ray revealing possible consolidation and left lower lobe (interpreted by hospitalist) compared to imaging from prior asthma exacerbation. -With patient having productive sputum and subjective fevers. Continue azithromycin 500 mg every 24 and Rocephin 1 g every 24 (currently on day 3) -Procalcitonin within normal limits. -Coronavirus PCR and influenza a/B PCR are negative. -Continue to monitor. #Hypertension -Patient unable to recall home antihypertensives. -Continue nifedipine 30 mg daily and lisinopril 20 mg daily. -Continue to monitor. #Constipation -Continue MiraLAX twice daily and senna daily. Continue to monitor. #Tobacco dependence #Alcohol use disorder #Tobacco cessation counseling #Alcohol use disorder counseling -Patient endorses smoking between 1-2 packs of cigarettes daily. Counseled patient about importance of smoking cessation given uncontrolled asthma. Patient expressed understanding. Time: +10 minutes -Continue nicotine patch 21 daily. -Patient endorses drinking upwards of 1 L of liquor on weekends. Counseled patient about importance of alcohol cessation and discussed available options for resources. Patient expressed understanding. Continue CIWA protocol. Time: +10 minutes #Obesity #Exercise counseling #Weight loss counseling -BMI 39 -Counseled on importance of dietary changes (fresh fruits and vegetables, increased water intake, and lean meats), incorporating exercise, and weight loss. Patient expressed understanding. -Time: +5 minutes #Advanced care planning -Disease education conducted, care plan discussed, diagnoses discussed, prognosis discussed, and patient acknowledges understanding with care plan -Time: +30 minutes #Discharge planning -Patient will require walk test tomorrow morning and if saturations are 94 or >, then patient can be discharged home safely. -Referral for primary care provider and outpatient box storage worker has been placed. Disposition Plan: Continue medical management Total Time Spent with Patient (Minutes): 45 minutes History Interval history: No acute events overnight. Hospitalist Physical - Constitutional Vitals: Temp Pulse Resp BP Pulse Ox 98.7 F 104 H 22 121/78 90 01/28/21 11:43 01/28/21 11:43 01/28/21 11:43 01/28/21 11:43 01/28/21 11:43 General appearance: Present: no acute distress, well-nourished, obese - EENT Eyes: Present: PERRL, EOM intact ENT: hearing intact, clear oral mucosa, dentition normal - Neck Neck: Present: supple, normal ROM - Respiratory Respiratory effort: normal Respiratory: bilateral: diminished - Cardiovascular Rhythm: regular Heart Sounds: Present: S1 & S2 - Extremities Extremities: no ischemia, pulses intact, pulses symmetrical, No edema, normal temperature, normal color, Full ROM Peripheral Pulses: within normal limits - Abdominal General gastrointestinal: soft, non-tender, non-distended, normal bowel sounds - Integumentary Integumentary: Present: clear, warm, dry - Psychiatric Psychiatric: appropriate mood/affect, intact judgment & insight, memory intact, cooperative - Neurologic Neurologic: CNII-XII intact, moves all extremities - Allied Health Allied health notes reviewed: nursing Results - Labs CBC & Chem 7: 01/28/21 07:08 01/28/21 07:08 Labs: Laboratory Last Values WBC 11.9 K/mm3 (4.5-11.0) H 01/28/21 07:08 RBC 4.51 M/mm3 (3.65-5.03) 01/28/21 07:08 Hgb 14.1 gm/dl (10.1-14.3) 01/28/21 07:08 Hct 44.2 % (30.3-42.9) H 01/28/21 07:08 MCV 98 fl (79-97) H 01/28/21 07:08 MCH 31 pg (28-32) 01/28/21 07:08 MCHC 32 % (30-34) 01/28/21 07:08 RDW 14.8 % (13.2-15.2) 01/28/21 07:08 Plt Count 241 K/mm3 (140-440) 01/28/21 07:08 Lymph % (Auto) 18.2 % (13.4-35.0) 01/28/21 07:08 [place] % (Auto) 14.1 % (0.0-7.3) H 01/28/21 07:08 Eos % (Auto) 0.1 % (0.0-4.3) 01/28/21 07:08 Baso % (Auto) 0.9 % (0.0-1.8) 01/28/21 07:08 Lymph # (Auto) 2.2 K/mm3 (1.2-5.4) 01/28/21 07:08 [place] # (Auto) 1.7 K/mm3 (0.0-0.8) H 01/28/21 07:08 Eos # (Auto) 0.0 K/mm3 (0.0-0.4) 01/28/21 07:08 Baso # (Auto) 0.1 K/mm3 (0.0-0.1) 01/28/21 07:08 Seg Neutrophils % 66.7 % (40.0-70.0) 01/28/21 07:08 Seg Neutrophils # 7.9 K/mm3 (1.8-7.7) H 01/28/21 07:08 D-Dimer 156.94 ng/mlDDU (0-234) 01/27/21 07:22 Sodium 139 mmol/L (137-145) 01/28/21 07:08 Potassium 3.9 mmol/L (3.6-5.0) 01/28/21 07:08 Chloride 101.6 mmol/L (98-107) 01/28/21 07:08 Carbon Dioxide 28 mmol/L (22-30) 01/28/21 07:08 Anion Gap 13 mmol/L 01/28/21 07:08 BUN 10 mg/dL (7-17) 01/28/21 07:08 Creatinine 0.7 mg/dL (0.6-1.2) 01/28/21 07:08 Estimated GFR > 60 ml/min 01/28/21 07:08 BUN/Creatinine Ratio 14 % 01/28/21 07:08 Glucose 93 mg/dL (65-100) 01/28/21 07:08 POC Glucose 94 mg/dL (70-105) 01/26/21 07:44 Calcium 8.6 mg/dL (8.4-10.2) 01/28/21 07:08 Phosphorus 3.40 mg/dL (2.5-4.5) 01/28/21 07:08 Magnesium 2.10 mg/dL (1.7-2.3) 01/28/21 07:08 Ferritin 177.4 ng/mL (10.0-200.0) 01/27/21 07:22 C-Reactive Protein 7.80 mg/dL (0.00-1.30) H 01/27/21 07:22 Procalcitonin < 0.05 ng/mL (<0.15) 01/26/21 13:15 Coronavirus (PCR) Negative (Negative) 01/27/21 Unknown Influenza A (Rapid) Negative (Negative) 01/27/21 14:12 Influenza B (Rapid) Negative (Negative) 01/27/21 14:12 Sheikh/IV: Voiding Method Toilet Active Medications - Current Medications Current Medications: Generic Name Dose Route Start Last Admin Trade Name Freq PRN Reason Stop Dose Admin Acetaminophen 650 mg 01/25/21 10:00 01/26/21 15:00 Acetaminophen 325 Mg Tab PO 650 mg Q4H PRN Administration Pain MILD(1-3)/Fever >100.5/REINOSO Albuterol 2.5 mg 01/26/21 09:03 Albuterol 2.5 Mg/3 Ml Nebu IH Q4H PRN Shortness Of Breath Albuterol/Ipratropium 1 ampul 01/26/21 14:00 01/28/21 08:50 Ipratropium/Albuterol Sulfate 3 Ml Ampul.Neb IH 1 ampul Q6HRT HOLDEN Administration Arformoterol Tartrate 15 mcg 01/26/21 20:00 01/28/21 08:50 Arformoterol 15 Mcg/2 Ml Nebu IH 15 mcg Q12HRT HOLDEN Administration Benzonatate 100 mg 01/25/21 14:00 01/28/21 06:27 Benzonatate 100 Mg Cap PO 100 mg Q8HR HOLDEN Administration Budesonide 0.5 mg 01/26/21 20:00 01/28/21 08:50 Budesonide 0.5 Mg/2 Ml Nebu IH 0.5 mg Q12HRT HOLDEN Administration Chlordiazepoxide HCl 50 mg 01/26/21 10:42 Chlordiazepoxide 25 Mg Cap PO Q1H PRN CIWA-Ar 8-15 Docusate Sodium 100 mg 01/25/21 15:00 01/28/21 10:29 Docusate Sodium 100 Mg Cap PO 100 mg BID HOLDEN Administration Enoxaparin Sodium 40 mg 01/25/21 22:00 01/28/21 00:25 Enoxaparin 40 Mg/0.4 Ml Inj SUB-Q 40 mg QDAY@2200 HOLDEN Administration Protocol Guaifenesin 200 mg 01/26/21 08:34 01/28/21 10:29 Guaifenesin 100 Mg/5 Ml Oral Liqd PO 200 mg Q6H PRN Administration Cough Lisinopril 20 mg 01/25/21 15:00 01/28/21 10:30 Lisinopril 20 Mg Tab PO 20 mg QDAY HOLDEN Administration Lorazepam 4 mg 01/26/21 10:42 Lorazepam 2 Mg/Ml Vial IV Q15MIN PRN CIWA-Ar >25 Lorazepam 4 mg 01/26/21 10:42 Lorazepam 2 Mg/Ml Vial IV Q1H PRN CIWA-Ar 16-25 Morphine Sulfate 2 mg 01/25/21 10:00 Morphine 2 Mg/1 Ml Inj IV Q4H PRN Pain , Severe (7-10) Nicotine 21 mg 01/25/21 15:00 01/28/21 10:29 Nicotine 21 Mg/24 Hr Patch TD 21 mg QDAY HOLDEN Administration Nifedipine 30 mg 01/25/21 15:00 01/28/21 10:30 Nifedipine Xl 30 Mg Tab PO 30 mg QDAY HOLDEN Administration Ondansetron HCl 4 mg 01/25/21 10:00 Ondansetron 4 Mg/2 Ml Inj IV Q8H PRN Nausea And Vomiting Oxycodone/Acetaminophen 1 tab 01/25/21 10:00 Oxycodone /Acetaminophen 5-325mg Tab PO Q6H PRN Pain, Moderate (4-6) Senna/Docusate Sodium 1 tab 01/25/21 22:00 01/28/21 00:25 Sennosides/Docusate Sodium 8.6/50 Mg Tab PO 1 tab QHS HOLDEN Administration Sodium Chloride 10 ml 01/25/21 10:00 01/28/21 00:30 Sodium Chloride 0.9% 10 Ml Flush Syringe IV Not Given BID HOLDEN Sodium Chloride 10 ml 01/25/21 10:00 Sodium Chloride 0.9% 10 Ml Flush Syringe IV PRN PRN LINE FLUSH
[2021-01-29] MEDS: IPRATROPIUM/ALBUTEROL SULFATE 3 ML AMPUL.NEB IH SCH ×4 (01:10→21:00)
[2021-01-29] MEDS: BENZONATATE 100 MG CAP PO SCH ×3 (06:31→22:46)
[2021-01-29 07:11] LABS: Basophils # (Auto) 0.1 K/mm3 (0.0-0.1); Basophils % (Auto) 0.8 % (0.0-1.8); Eosinophils # (Auto) 0.2 K/mm3 (0.0-0.4); Eosinophils % (Auto) 1.7 % (0.0-4.3); Hematocrit 42.4 % (30.3-42.9); Hemoglobin 13.6 gm/dl (10.1-14.3); Lymphocytes # (Auto) 2.6 K/mm3 (1.2-5.4); Lymphocytes % (Auto) 29.5 % (13.4-35.0); Mean Corpuscular HGB Conc 32 % (30-34); Mean Corpuscular Volume 98 fl (79-97); Monocytes # (Auto) 1.3 K/mm3 (0.0-0.8); Monocytes % (Auto) 14.6 % (0.0-7.3); Platelet Count 251 K/mm3 (140-440); Red Blood Count 4.34 M/mm3 (3.65-5.03); Red Cell Distribution Width 14.7 % (13.2-15.2)
[2021-01-29 07:23] LABS: BUN/Creatinine Ratio 11; Blood Urea Nitrogen 9 mg/dL (7-17); Calcium 8.5 mg/dL (8.4-10.2); Hemolysis Index 6
[2021-01-29] MEDS: BUDESONIDE 0.5 MG/2 ML NEBU IH SCH ×2 (08:01→21:00)
[2021-01-29] MEDS: ARFORMOTEROL 15 MCG/2 ML NEBU IH SCH ×2 (08:01→21:00)
[2021-01-29] MEDS: NIFEdipine XL 30 MG TAB PO SCH (10:01)
[2021-01-29] MEDS: DOCUSATE SODIUM 100 MG CAP PO SCH ×2 (10:02→22:46)
[2021-01-29] MEDS: LISINOPRIL 20 MG TAB PO SCH (10:02)
[2021-01-29] MEDS: NICOTINE 21 MG/24 HR PATCH TD SCH (10:02)
--- NOTE | 2021-01-29 11:10 | Progress Note ---
Assessment and Plan Assessment and plan: Patient is a 50-year-old female past medical history of hypertension, obesity, and asthma who presented with an acute asthma exacerbation. #Acute asthma exacerbation-resolved #Acute hypoxic respiratory failure-resolved -Worsening symptoms since moving to [place], [place]. Patient does not have tile grinder or PCP. -Status post DuoNebs, IV methylprednisolone 125 mg x 1, and IV magnesium 2 g in the ED -Patient desaturated to 90 with ambulation. Will watch for improvement and possible discharge tomorrow. Currently not hypoxia at rest. -Negative for pulmonary embolism. -Received prednisone 60 mg for 1 day and was discontinued on 01/26/2021. Will start prednisone 60 mg p.o. daily x5 days. -Continue DuoNebs every 6 hours and albuterol nebs as needed. -Start Mucinex twice daily. DC as needed Robitussin. -She will need prescription for nebulizer machine when she is being discharged #Possible pneumonia-resolved -Chest x-ray on admission was negative. -Repeat chest x-ray on 01/27/2021 showed possible right upper lobe pneumonia versus artifact. - Patient was treated with IV Rocephin which was completed on 01/28/2021 -With patient having productive sputum and subjective fevers. Continue azithromycin 500 mg every 24 and Rocephin 1 g every 24 (currently on day 3) -Procalcitonin within normal limits. -Coronavirus PCR and influenza a/B PCR are negative. -Continue to monitor. #Hypertension -continue current medication. -Continue to monitor. #Constipation. Resolved -Continue MiraLAX twice daily and senna daily. Continue to monitor. #Tobacco dependence #Alcohol use disorder #Tobacco cessation counseling #Alcohol use disorder counseling -Patient endorses smoking between 1-2 packs of cigarettes daily. She was counseled about importance of smoking cessation given uncontrolled asthma. -Continue nicotine patch 21 daily. -Patient endorses drinking upwards of 1 L of liquor on weekends. She was counseled about importance of alcohol cessation. #Obesity #Exercise counseling #Weight loss counseling -BMI 39 -Counseled on importance of dietary changes (fresh fruits and vegetables, increased water intake, and lean meats), incorporating exercise, and weight loss was given. Patient expressed understanding. #Discharge planning -Patient will require walk test tomorrow morning and if saturations are 94 or >, then patient can be discharged home safely. -Referral for primary care provider and outpatient tile grinder has been placed. History Interval history: Still shortness of breath on exertion. Still wheeze. Has cough which noted is chronic. She stated that she will need prescription for nebulizer machine because her machine broke about 3 months ago. Hospitalist Physical - Constitutional Vitals: Temp Pulse Resp BP Pulse Ox 98.1 F 88 20 110/84 99 01/29/21 06:27 01/29/21 06:27 01/29/21 06:27 01/29/21 06:27 01/29/21 06:27 General appearance: Present: no acute distress, well-nourished, obese - EENT Eyes: Present: PERRL, EOM intact ENT: hearing intact - Neck Neck: Present: supple, normal ROM - Respiratory Respiratory effort: other (Mild tachypnea) Respiratory: bilateral: diminished, wheezing - Cardiovascular Rhythm: regular Heart Sounds: Present: S1 & S2 - Extremities Extremities: no ischemia, No edema, Full ROM - Abdominal General gastrointestinal: soft, non-tender, non-distended, normal bowel sounds - Integumentary Integumentary: Present: clear, warm, dry - Psychiatric Psychiatric: appropriate mood/affect Results - Labs CBC & Chem 7: 01/29/21 06:18 01/29/21 06:18 Labs: Laboratory Last Values WBC 8.9 K/mm3 (4.5-11.0) 01/29/21 06:18 RBC 4.34 M/mm3 (3.65-5.03) 01/29/21 06:18 Hgb 13.6 gm/dl (10.1-14.3) 01/29/21 06:18 Hct 42.4 % (30.3-42.9) 01/29/21 06:18 MCV 98 fl (79-97) H 01/29/21 06:18 MCH 31 pg (28-32) 01/29/21 06:18 MCHC 32 % (30-34) 01/29/21 06:18 RDW 14.7 % (13.2-15.2) 01/29/21 06:18 Plt Count 251 K/mm3 (140-440) 01/29/21 06:18 Lymph % (Auto) 29.5 % (13.4-35.0) 01/29/21 06:18 [place] % (Auto) 14.6 % (0.0-7.3) H 01/29/21 06:18 Eos % (Auto) 1.7 % (0.0-4.3) 01/29/21 06:18 Baso % (Auto) 0.8 % (0.0-1.8) 01/29/21 06:18 Lymph # (Auto) 2.6 K/mm3 (1.2-5.4) 01/29/21 06:18 [place] # (Auto) 1.3 K/mm3 (0.0-0.8) H 01/29/21 06:18 Eos # (Auto) 0.2 K/mm3 (0.0-0.4) 01/29/21 06:18 Baso # (Auto) 0.1 K/mm3 (0.0-0.1) 01/29/21 06:18 Seg Neutrophils % 53.4 % (40.0-70.0) 01/29/21 06:18 Seg Neutrophils # 4.7 K/mm3 (1.8-7.7) 01/29/21 06:18 D-Dimer 156.94 ng/mlDDU (0-234) 01/27/21 07:22 Sodium 141 mmol/L (137-145) 01/29/21 06:18 Potassium 3.8 mmol/L (3.6-5.0) 01/29/21 06:18 Chloride 102.1 mmol/L (98-107) 01/29/21 06:18 Carbon Dioxide 28 mmol/L (22-30) 01/29/21 06:18 Anion Gap 15 mmol/L 01/29/21 06:18 BUN 9 mg/dL (7-17) 01/29/21 06:18 Creatinine 0.8 mg/dL (0.6-1.2) 01/29/21 06:18 Estimated GFR > 60 ml/min 01/29/21 06:18 BUN/Creatinine Ratio 11 % 01/29/21 06:18 Glucose 83 mg/dL (65-100) 01/29/21 06:18 POC Glucose 94 mg/dL (70-105) 01/26/21 07:44 Calcium 8.5 mg/dL (8.4-10.2) 01/29/21 06:18 Phosphorus 3.40 mg/dL (2.5-4.5) 01/28/21 07:08 Magnesium 2.10 mg/dL (1.7-2.3) 01/28/21 07:08 Ferritin 177.4 ng/mL (10.0-200.0) 01/27/21 07:22 C-Reactive Protein 7.80 mg/dL (0.00-1.30) H 01/27/21 07:22 Procalcitonin < 0.05 ng/mL (<0.15) 01/26/21 13:15 Coronavirus (PCR) Negative (Negative) 01/27/21 Unknown Influenza A (Rapid) Negative (Negative) 01/27/21 14:12 Influenza B (Rapid) Negative (Negative) 01/27/21 14:12 Sheikh/IV: Voiding Method Toilet Active Medications - Current Medications Current Medications: Generic Name Dose Route Start Last Admin Trade Name Freq PRN Reason Stop Dose Admin Acetaminophen 650 mg 01/25/21 10:00 01/26/21 15:00 Acetaminophen 325 Mg Tab PO 650 mg Q4H PRN Administration Pain MILD(1-3)/Fever >100.5/REINOSO Albuterol 2.5 mg 01/26/21 09:03 Albuterol 2.5 Mg/3 Ml Nebu IH Q4H PRN Shortness Of Breath Albuterol/Ipratropium 1 ampul 01/26/21 14:00 01/29/21 08:01 Ipratropium/Albuterol Sulfate 3 Ml Ampul.Neb IH 1 ampul Q6HRT HOLDEN Administration Arformoterol Tartrate 15 mcg 01/26/21 20:00 01/29/21 08:01 Arformoterol 15 Mcg/2 Ml Nebu IH 15 mcg Q12HRT HOLDEN Administration Benzonatate 100 mg 01/25/21 14:00 01/29/21 06:31 Benzonatate 100 Mg Cap PO 100 mg Q8HR HOLDEN Administration Budesonide 0.5 mg 01/26/21 20:00 01/29/21 08:01 Budesonide 0.5 Mg/2 Ml Nebu IH 0.5 mg Q12HRT HOLDEN Administration Chlordiazepoxide HCl 50 mg 01/26/21 10:42 Chlordiazepoxide 25 Mg Cap PO Q1H PRN CIWA-Ar 8-15 Docusate Sodium 100 mg 01/25/21 15:00 01/29/21 10:02 Docusate Sodium 100 Mg Cap PO 100 mg BID HOLDEN Administration Enoxaparin Sodium 40 mg 01/25/21 22:00 01/28/21 22:24 Enoxaparin 40 Mg/0.4 Ml Inj SUB-Q 40 mg QDAY@2200 HOLDEN Administration Protocol Guaifenesin 200 mg 01/26/21 08:34 01/28/21 17:09 Guaifenesin 100 Mg/5 Ml Oral Liqd PO 200 mg Q6H PRN Administration Cough Lisinopril 20 mg 01/25/21 15:00 01/29/21 10:02 Lisinopril 20 Mg Tab PO 20 mg QDAY HOLDEN Administration Lorazepam 4 mg 01/26/21 10:42 Lorazepam 2 Mg/Ml Vial IV Q15MIN PRN CIWA-Ar >25 Lorazepam 4 mg 01/26/21 10:42 Lorazepam 2 Mg/Ml Vial IV Q1H PRN CIWA-Ar 16-25 Morphine Sulfate 2 mg 01/25/21 10:00 Morphine 2 Mg/1 Ml Inj IV Q4H PRN Pain , Severe (7-10) Nicotine 21 mg 01/25/21 15:00 01/29/21 10:02 Nicotine 21 Mg/24 Hr Patch TD 21 mg QDAY HOLDEN Administration Nifedipine 30 mg 01/25/21 15:00 01/29/21 10:01 Nifedipine Xl 30 Mg Tab PO 30 mg QDAY HOLDEN Administration Ondansetron HCl 4 mg 01/25/21 10:00 Ondansetron 4 Mg/2 Ml Inj IV Q8H PRN Nausea And Vomiting Oxycodone/Acetaminophen 1 tab 01/25/21 10:00 Oxycodone /Acetaminophen 5-325mg Tab PO Q6H PRN Pain, Moderate (4-6) Senna/Docusate Sodium 1 tab 01/25/21 22:00 01/28/21 22:25 Sennosides/Docusate Sodium 8.6/50 Mg Tab PO 1 tab QHS HOLDEN Administration Sodium Chloride 10 ml 01/25/21 10:00 01/29/21 10:02 Sodium Chloride 0.9% 10 Ml Flush Syringe IV 10 ml BID HOLDEN Administration Sodium Chloride 10 ml 01/25/21 10:00 Sodium Chloride 0.9% 10 Ml Flush Syringe IV PRN PRN LINE FLUSH
[2021-01-29] MEDS: predniSONE 20 MG TAB PO SCH (12:00)
[2021-01-29] MEDS: guaiFENesin ER 600 MG TAB PO SCH ×2 (12:00→22:47)
[2021-01-29] MEDS: ENOXAPARIN 40 MG/0.4 ML INJ SUB-Q SCH (22:47)
[2021-01-29] MEDS: SENNOSIDES/DOCUSATE SODIUM 8.6/50 MG TAB PO SCH (22:47)
[2021-01-30] MEDS: IPRATROPIUM/ALBUTEROL SULFATE 3 ML AMPUL.NEB IH SCH ×4 (02:36→20:28)
[2021-01-30] MEDS: BENZONATATE 100 MG CAP PO SCH ×3 (06:08→22:10)
[2021-01-30] MEDS: ARFORMOTEROL 15 MCG/2 ML NEBU IH SCH ×2 (09:31→20:28)
[2021-01-30] MEDS: BUDESONIDE 0.5 MG/2 ML NEBU IH SCH ×2 (09:31→20:28)
[2021-01-30] MEDS: guaiFENesin ER 600 MG TAB PO SCH ×2 (09:41→22:10)
[2021-01-30] MEDS: predniSONE 20 MG TAB PO SCH (09:41)
[2021-01-30] MEDS: LISINOPRIL 20 MG TAB PO SCH (09:41)
[2021-01-30] MEDS: NIFEdipine XL 30 MG TAB PO SCH (09:41)
[2021-01-30] MEDS: DOCUSATE SODIUM 100 MG CAP PO SCH ×2 (09:41→22:10)
[2021-01-30] MEDS: NICOTINE 21 MG/24 HR PATCH TD SCH (09:42)
--- NOTE | 2021-01-30 13:12 | Progress Note ---
Assessment and Plan Assessment and plan: Patient is a 50-year-old female past medical history of hypertension, obesity, and asthma who presented with an acute asthma exacerbation. #Acute asthma exacerbation-resolved #Acute hypoxic respiratory failure-resolved -Worsening symptoms since moving to [place], [place]. Patient does not have project program manager or PCP. -Status post DuoNebs, IV methylprednisolone 125 mg x 1, and IV magnesium 2 g in the ED -Patient desaturated to 90 with ambulation. Will watch for improvement and possible discharge tomorrow. Currently not hypoxia at rest. -Negative for pulmonary embolism. -Received prednisone 60 mg for 1 day and was discontinued on 01/26/2021. Will start prednisone 60 mg p.o. daily x5 days. -Continue DuoNebs every 6 hours and albuterol nebs as needed. -Continue Mucinex twice daily. DC as needed Robitussin. -She will need prescription for nebulizer machine when she is being discharged -Patient desaturates to 89 on walk test and requires 2 L nasal cannula with improvement. Ordering home oxygen. #Possible pneumonia-resolved -Chest x-ray on admission was negative. -Repeat chest x-ray on 01/27/2021 showed possible right upper lobe pneumonia versus artifact. - Patient was treated with IV Rocephin which was completed on 01/28/2021 -With patient having productive sputum and subjective fevers. Continue azithromycin 500 mg every 24 and Rocephin 1 g every 24 (currently on day 3) -Procalcitonin within normal limits. -Coronavirus PCR and influenza a/B PCR are negative. -Continue to monitor. #Hypertension -continue current medication. -Continue to monitor. #Constipation. Resolved -Continue MiraLAX twice daily and senna daily. Continue to monitor. #Tobacco dependence #Alcohol use disorder #Tobacco cessation counseling #Alcohol use disorder counseling -Patient endorses smoking between 1-2 packs of cigarettes daily. She was counseled about importance of smoking cessation given uncontrolled asthma. -Continue nicotine patch 21 daily. -Patient endorses drinking upwards of 1 L of liquor on weekends. She was counseled about importance of alcohol cessation. #Obesity #Exercise counseling #Weight loss counseling -BMI 39 -Counseled on importance of dietary changes (fresh fruits and vegetables, increased water intake, and lean meats), incorporating exercise, and weight loss was given. Patient expressed understanding. #Discharge planning. -Referral for primary care provider and outpatient project program manager has been placed. -Patient requires 2 L nasal cannula after walk test with desaturations to 88- 89%. Planning to discharge tomorrow with home oxygen. #Advanced care planning -Disease education conducted, care plan discussed, diagnoses discussed, prognosis discussed, and patient acknowledges understanding with care plan -Time: +30 minutes Disposition Plan: Pending discharge home tomorrow Total Time Spent with Patient (Minutes): 45-minute History Interval history: No acute events overnight Hospitalist Physical - Constitutional Vitals: Temp Pulse Resp BP Pulse Ox 98.3 F 105 H 18 142/99 94 01/30/21 11:55 01/30/21 11:55 01/30/21 11:55 01/30/21 11:55 01/30/21 11:55 General appearance: Present: no acute distress, well-nourished, obese - EENT Eyes: Present: PERRL, EOM intact ENT: hearing intact, clear oral mucosa, dentition normal - Neck Neck: Present: supple, normal ROM - Respiratory Respiratory effort: normal Respiratory: bilateral: diminished - Cardiovascular Rhythm: regular Heart Sounds: Present: S1 & S2 - Extremities Extremities: no ischemia, pulses intact, pulses symmetrical, No edema, normal temperature, normal color, Full ROM Peripheral Pulses: within normal limits - Abdominal General gastrointestinal: soft, non-tender, non-distended, normal bowel sounds - Integumentary Integumentary: Present: clear, warm, dry - Psychiatric Psychiatric: appropriate mood/affect, intact judgment & insight, memory intact, cooperative - Neurologic Neurologic: CNII-XII intact, moves all extremities - Allied Health Allied health notes reviewed: nursing Results - Labs CBC & Chem 7: 01/29/21 06:18 01/29/21 06:18 Labs: Laboratory Last Values WBC 8.9 K/mm3 (4.5-11.0) 01/29/21 06:18 RBC 4.34 M/mm3 (3.65-5.03) 01/29/21 06:18 Hgb 13.6 gm/dl (10.1-14.3) 01/29/21 06:18 Hct 42.4 % (30.3-42.9) 01/29/21 06:18 MCV 98 fl (79-97) H 01/29/21 06:18 MCH 31 pg (28-32) 01/29/21 06:18 MCHC 32 % (30-34) 01/29/21 06:18 RDW 14.7 % (13.2-15.2) 01/29/21 06:18 Plt Count 251 K/mm3 (140-440) 01/29/21 06:18 Lymph % (Auto) 29.5 % (13.4-35.0) 01/29/21 06:18 [place] % (Auto) 14.6 % (0.0-7.3) H 01/29/21 06:18 Eos % (Auto) 1.7 % (0.0-4.3) 01/29/21 06:18 Baso % (Auto) 0.8 % (0.0-1.8) 01/29/21 06:18 Lymph # (Auto) 2.6 K/mm3 (1.2-5.4) 01/29/21 06:18 [place] # (Auto) 1.3 K/mm3 (0.0-0.8) H 01/29/21 06:18 Eos # (Auto) 0.2 K/mm3 (0.0-0.4) 01/29/21 06:18 Baso # (Auto) 0.1 K/mm3 (0.0-0.1) 01/29/21 06:18 Seg Neutrophils % 53.4 % (40.0-70.0) 01/29/21 06:18 Seg Neutrophils # 4.7 K/mm3 (1.8-7.7) 01/29/21 06:18 D-Dimer 156.94 ng/mlDDU (0-234) 01/27/21 07:22 Sodium 141 mmol/L (137-145) 01/29/21 06:18 Potassium 3.8 mmol/L (3.6-5.0) 01/29/21 06:18 Chloride 102.1 mmol/L (98-107) 01/29/21 06:18 Carbon Dioxide 28 mmol/L (22-30) 01/29/21 06:18 Anion Gap 15 mmol/L 01/29/21 06:18 BUN 9 mg/dL (7-17) 01/29/21 06:18 Creatinine 0.8 mg/dL (0.6-1.2) 01/29/21 06:18 Estimated GFR > 60 ml/min 01/29/21 06:18 BUN/Creatinine Ratio 11 % 01/29/21 06:18 Glucose 83 mg/dL (65-100) 01/29/21 06:18 POC Glucose 94 mg/dL (70-105) 01/26/21 07:44 Calcium 8.5 mg/dL (8.4-10.2) 01/29/21 06:18 Phosphorus 3.40 mg/dL (2.5-4.5) 01/28/21 07:08 Magnesium 2.10 mg/dL (1.7-2.3) 01/28/21 07:08 Ferritin 177.4 ng/mL (10.0-200.0) 01/27/21 07:22 C-Reactive Protein 7.80 mg/dL (0.00-1.30) H 01/27/21 07:22 Procalcitonin < 0.05 ng/mL (<0.15) 01/26/21 13:15 Coronavirus (PCR) Negative (Negative) 01/27/21 Unknown Influenza A (Rapid) Negative (Negative) 01/27/21 14:12 Influenza B (Rapid) Negative (Negative) 01/27/21 14:12 Sheikh/IV: Voiding Method Toilet Active Medications - Current Medications Current Medications: Generic Name Dose Route Start Last Admin Trade Name Freq PRN Reason Stop Dose Admin Acetaminophen 650 mg 01/25/21 10:00 01/26/21 15:00 Acetaminophen 325 Mg Tab PO 650 mg Q4H PRN Administration Pain MILD(1-3)/Fever >100.5/REINOSO Albuterol 2.5 mg 01/26/21 09:03 Albuterol 2.5 Mg/3 Ml Nebu IH Q4H PRN Shortness Of Breath Albuterol/Ipratropium 1 ampul 01/26/21 14:00 01/30/21 09:31 Ipratropium/Albuterol Sulfate 3 Ml Ampul.Neb IH 1 ampul Q6HRT HOLDEN Administration Arformoterol Tartrate 15 mcg 01/26/21 20:00 01/30/21 09:31 Arformoterol 15 Mcg/2 Ml Nebu IH 15 mcg Q12HRT HOLDEN Administration Benzonatate 100 mg 01/25/21 14:00 01/30/21 06:08 Benzonatate 100 Mg Cap PO 100 mg Q8HR HOLDEN Administration Budesonide 0.5 mg 01/26/21 20:00 01/30/21 09:31 Budesonide 0.5 Mg/2 Ml Nebu IH 0.5 mg Q12HRT HOLDEN Administration Chlordiazepoxide HCl 50 mg 01/26/21 10:42 Chlordiazepoxide 25 Mg Cap PO Q1H PRN CIWA-Ar 8-15 Docusate Sodium 100 mg 01/25/21 15:00 01/30/21 09:41 Docusate Sodium 100 Mg Cap PO 100 mg BID HOLDEN Administration Enoxaparin Sodium 40 mg 01/25/21 22:00 01/29/21 22:47 Enoxaparin 40 Mg/0.4 Ml Inj SUB-Q 40 mg QDAY@2200 HOLDEN Administration Protocol Guaifenesin 600 mg 01/29/21 12:00 01/30/21 09:41 Guaifenesin Er 600 Mg Tab PO 600 mg BID HOLDEN Administration Lisinopril 20 mg 01/25/21 15:00 01/30/21 09:41 Lisinopril 20 Mg Tab PO 20 mg QDAY HOLDEN Administration Lorazepam 4 mg 01/26/21 10:42 Lorazepam 2 Mg/Ml Vial IV Q15MIN PRN CIWA-Ar >25 Lorazepam 4 mg 01/26/21 10:42 Lorazepam 2 Mg/Ml Vial IV Q1H PRN CIWA-Ar 16-25 Morphine Sulfate 2 mg 01/25/21 10:00 Morphine 2 Mg/1 Ml Inj IV Q4H PRN Pain , Severe (7-10) Nicotine 21 mg 01/25/21 15:00 01/30/21 09:42 Nicotine 21 Mg/24 Hr Patch TD 21 mg QDAY HOLDEN Administration Nifedipine 30 mg 01/25/21 15:00 01/30/21 09:41 Nifedipine Xl 30 Mg Tab PO 30 mg QDAY HOLDEN Administration Ondansetron HCl 4 mg 01/25/21 10:00 Ondansetron 4 Mg/2 Ml Inj IV Q8H PRN Nausea And Vomiting Oxycodone/Acetaminophen 1 tab 01/25/21 10:00 Oxycodone /Acetaminophen 5-325mg Tab PO Q6H PRN Pain, Moderate (4-6) Prednisone 60 mg 01/29/21 12:00 01/30/21 09:41 Prednisone 20 Mg Tab PO 02/03/21 11:59 60 mg QDAY HOLDEN Administration Senna/Docusate Sodium 1 tab 01/25/21 22:00 01/29/21 22:47 Sennosides/Docusate Sodium 8.6/50 Mg Tab PO 1 tab QHS HOLDEN Administration Sodium Chloride 10 ml 01/25/21 10:00 01/30/21 09:42 Sodium Chloride 0.9% 10 Ml Flush Syringe IV 10 ml BID HOLDEN Administration Sodium Chloride 10 ml 01/25/21 10:00 Sodium Chloride 0.9% 10 Ml Flush Syringe IV PRN PRN LINE FLUSH
[2021-01-30] MEDS: ENOXAPARIN 40 MG/0.4 ML INJ SUB-Q SCH (22:10)
[2021-01-30] MEDS: SENNOSIDES/DOCUSATE SODIUM 8.6/50 MG TAB PO SCH (22:10)
[2021-01-31] MEDS: IPRATROPIUM/ALBUTEROL SULFATE 3 ML AMPUL.NEB IH SCH ×3 (01:43→13:43)
[2021-01-31] MEDS: BENZONATATE 100 MG CAP PO SCH (05:46)
[2021-01-31] MEDS: ARFORMOTEROL 15 MCG/2 ML NEBU IH SCH (07:44)
[2021-01-31] MEDS: BUDESONIDE 0.5 MG/2 ML NEBU IH SCH (07:44)
[2021-01-31] MEDS: guaiFENesin ER 600 MG TAB PO SCH (10:24)
[2021-01-31] MEDS: DOCUSATE SODIUM 100 MG CAP PO SCH ×2 (10:24→10:29)
[2021-01-31] MEDS: LISINOPRIL 20 MG TAB PO SCH (10:24)
[2021-01-31] MEDS: NIFEdipine XL 30 MG TAB PO SCH (10:25)
[2021-01-31] MEDS: predniSONE 20 MG TAB PO SCH (10:25)
[2021-01-31] MEDS: NICOTINE 21 MG/24 HR PATCH TD SCH (10:25)
[2021-01-31 10:29] VITALS: BP 116/93
--- NOTE | 2021-01-31 12:08 | Discharge Summary ---
Providers - Providers Date of Admission: 01/26/21 15:44 Date of discharge: 01/31/21 Attending physician: BEN DIAZ MD Primary care physician: MARKETING FINANCE SPECIALIST Hospitalization Reason for admission: Acute asthma exacerbation Condition: Fair Pertinent studies: Reviewed. Procedures: None. Hospital course: Patient is a 50-year-old female past medical history of hypertension, obesity, and asthma who presented with an acute asthma exacerbation that was found to be secondary to community-acquired pneumonia. The patient has been vaccinated for COVID-19 and received 2 shots. The patient was found to be negative for coronavirus 19 and influenza a/B. Patient received IV antibiotics and completed the course. The patient was counseled at length about importance of medication compliance, tobacco cessation, reduction of alcohol use, weight loss, and incorporating exercise. The patient expressed understanding. Patient was also started on 2 antihypertensives for persistently elevated blood pressures. The patient is safe for medical discharge. Disposition: HOME / SELF CARE / HOMELESS Final Discharge Diagnosis (Prints w/discharge instructions): Acute asthma exacerbation, acute hypoxic respiratory failure, community-acquired pneumonia, hypertension, constipation, tobacco dependence, alcohol use disorder, obesity Time spent for discharge: 45 minutes Core Measure Documentation - Palliative Care Palliative Care/ Comfort Measures: Not Applicable - Core Measures Any of the following diagnoses?: none - VTE Discharge Requirements Deep Vein Thrombosis/Pulmonary Embolism Present on Admission: No Has pt received <5 days of overlap therapy or INR<2.0: No Anticoagulant overlap therapy prescribed at discharge: No Contraindication No Overlap Therapy order at DC: Not Indicated - Acute SD Discharge Requirements Aspirin at discharge: No Reason for no aspirin on DC: Medical contraindication (Not indicated) NOMI/ARB for LVSD if EF <40%: Yes Beta angus at discharge: No Reason for no beta angus on DC: Medical contraindication (Not indicated) Statin for LDL = or >100 mg/dl on DC: Not Applicable - Heart Failure Discharge Requirements NOMI/ARB for LVSD if EF <40%: Yes Beta angus at discharge: No Reason for no beta angus on DC: Medical contraindication (Not indicated) - Stroke Discharge Requirements Statin for LDL = or >70 mg/dl on DC: Not Applicable Anticoag for atrial fib/atrial flutter: Not Applicable Antithrombotic for ischemic stroke: No Reason for no antithrombotic on DC: Not Indicated Exam - Constitutional Vitals: Temp Pulse Resp BP Pulse Ox 97.9 F 93 H 16 116/93 98 01/30/21 21:52 01/31/21 07:44 01/31/21 07:44 01/31/21 10:24 01/31/21 07:44 General appearance: Present: no acute distress, well-nourished, obese - EENT Eyes: Present: PERRL, EOM intact ENT: hearing intact, clear oral mucosa, dentition normal - Neck Neck: Present: supple, normal ROM - Respiratory Respiratory effort: normal Respiratory: bilateral: diminished - Cardiovascular Rhythm: regular Heart Sounds: Present: S1 & S2 - Extremities Extremities: no ischemia, pulses intact, pulses symmetrical, No edema, normal temperature, normal color, Full ROM Peripheral Pulses: within normal limits - Abdominal General gastrointestinal: Present: soft, non-tender, non-distended, normal bowel sounds Female genitourinary: Present: deferred - Rectal Rectal Exam: deferred - Integumentary Integumentary: Present: clear, warm - Musculoskeletal Musculoskeletal: strength equal bilaterally - Psychiatric Psychiatric: appropriate mood/affect, intact judgment & insight, memory intact, cooperative - Neurologic Neurologic: CNII-XII intact, moves all extremities - Allied Health Allied health notes reviewed: nursing Plan Care Plan Goals: Patient safe to discharge home. Assessment: The patient was admitted for shortness of breath complicated by acute hypoxic r espiratory failure (does not require oxygen at baseline) that was found to be secondary to community-acquired pneumonia. The patient was negative for coronavirus and influenza A/P. The patient received 3-day course of antibiotics. The patient endorses having a chronic cough in the setting of 20+ pack year smoking history in addition to underlying asthma. The patient will be discharged with at home nebulizer (patient endorses hers broke approximately 3 months ago), PCP referral, referral to pulmonology for asthma management. Patient is safe to discharge home. Follow up with: SHERMAN ELLIOTT MD [Staff Physician] - 6 Weeks (Referral for outpatient detasseler for asthma control.) SHAILA CHENEY MD [Staff Physician] - 14 Days (Establishment of care with PCP) PRIMARY MD JOSE [Primary Care Provider] - 3-5 Days Prescriptions: Sennosides/Docusate [Senokot S] 1 tab PO QHS #30 tablet Nicotine [Habitrol] 21 mg TD QDAY #30 patch guaiFENesin ER [Mucinex ER] 600 mg PO BID #30 tablet NIFEdipine XL [Procardia Xl] 30 mg PO QDAY #30 tablet Budesonide [Pulmicort Respules] 0.5 mg IH Q12HRT #3 nebu lisinopriL [Zestril TAB] 20 mg PO QDAY #30 tablet Other Discharge Orders: Nebulizer (Amb) Location: None Selected
== END 2021-01-31 13:07 | disposition home or self-care (01) | DRG 193 ==
LOC: ED 04:15 → 3A 09:05 → OBSVTOIN 01-26 15:44 → UNDODISIN 01-31 13:19
PROVIDERS: ADMIT Student in an Organized Health Care Education/Training Program; ATTEND Student in an Organized Health Care Education/Training Program
DX: J18.9 Pneumonia, unspecified organism (principal); J96.01 Acute respiratory failure with hypoxia; J45.901 Unspecified asthma with (acute) exacerbation; Z68.41 Body mass index [BMI] 40.0-44.9, adult; I10 Essential (primary) hypertension; Z82.49 Family history of ischemic heart disease and other diseases of the circulatory system; K59.00 Constipation, unspecified; E66.9 Obesity, unspecified; F10.10 Alcohol abuse, uncomplicated; F17.200 Nicotine dependence, unspecified, uncomplicated; Z20.822 Contact with and (suspected) exposure to COVID-19
CPT/HCPCS: 36415; 71045; 80048; 82728; 82962; 83735; 84100; 84145; 85025; 85379; 86140; 87400; 94640; 94644; 94760; G0378; J0696; J1650; J2930; J3475; J7512; U0003